=== PATIENT | female | born 1945 | race Caucasian/White ===

== ENCOUNTER 2016-10-08 22:27 | Emergency (ER) | payer MEDICARE, OTHER ==
[2016-10-08 22:37] VITALS: TEMP 97.8; O2SAT 99
[2016-10-08] MEDS ORDERED: Sodium Chloride 0.9% 500 ML IV ONE (23:21)
--- NOTE | 2016-10-08 23:36 | C.PDOC ---
History Of Present Illness 70 year old pt c/o right flank pain, increased urination, and dark, "foamy" urine for the last 3 weeks. Pt notes lower extremity swelling. Pt denies fever, chest pain, shortness of breath, abdominal pain, nausea, vomiting, dysuria, hematuria, or any other complaints. Time Seen by Provider: 10/08/16 22:40 Chief Complaint (Nursing): Female Genitourinary History Per: Patient History/Exam Limitations: no limitations Onset/Duration Of Symptoms: Days Current Symptoms Are (Timing): Still Present Severity: Mild Location Of Pain/Discomfort: Other (Right flank pain. Lower extremity edema) Associated Symptoms: denies: Fever, Nausea, Vomiting, Chest Pain, Urinary Symptoms Past Medical History Reviewed: Historical Data, Nursing Documentation, Vital Signs Vital Signs: Last Vital Signs Temp 97.8 F 10/08/16 22:33 Pulse 74 10/08/16 22:33 Resp 20 10/08/16 22:33 BP 147/85 10/08/16 22:33 Pulse Ox 99 10/08/16 23:45 - Medical History PMH: Anxiety, HTN, Hyperthyroidism, Hypothyroidism Surgical History: Appendectomy Family History: States: Unknown Family Hx - Social History Hx Tobacco Use: No Hx Alcohol Use: No Hx Substance Use: No - Immunization History Hx Tetanus Toxoid Vaccination: Yes Hx Influenza Vaccination: No Hx Pneumococcal Vaccination: Yes Review Of Systems Except As Marked, All Systems Reviewed And Found Negative. Constitutional: Negative for: Fever Cardiovascular: Positive for: Edema (Lower extremity edema). Negative for: Chest Pain Respiratory: Negative for: Shortness of Breath Gastrointestinal: Negative for: Nausea, Vomiting, Abdominal Pain Genitourinary: Positive for: Frequency (Polyuria), Other (Dark and foamy urine.) . Negative for: Dysuria, Hematuria Physical Exam - Physical Exam Appears: Well, Non-toxic, No Acute Distress Skin: Warm, Dry Head: Atraumatic, Normacephalic Chest: Symmetrical Cardiovascular: Rhythm Regular Respiratory: Normal Breath Sounds, No Rales, No Rhonchi, No Wheezing Gastrointestinal/Abdominal: Soft, No Tenderness, Other (No costovertebral angle tenderness) Extremity: Pedal Edema (+1 pedal edema of lower extremity) Neurological/Psych: Oriented x3, Normal Speech ED Course And Treatment - Laboratory Results Result Diagrams: 10/08/16 23:35 10/08/16 23:35 O2 Sat by Pulse Oximetry: 99 Progress Note: Pt was given blood works and other labs. Pt was given fluids. Disposition Counseled Patient/Family Regarding: Studies Performed, Diagnosis, Need For Followup - Disposition Referrals: Renard Chew MD [Staff Provider] - Zion Dawn Jr., MD [Staff Provider] - De Apodaca MD [Staff Provider] - Disposition: HOME/ ROUTINE Disposition Time: 00:50 Condition: STABLE Additional Instructions: SEGUIMIENTO CON CHASE MDICO EN 1-2 BOOKER DEVUELVA A LA GLENNY DE EMERGENCIA SI LOS SNTOMAS Instructions: Leg Edema (ED) Print Language: JAPANESE - POA Present On Arrival: None - Clinical Impression Clinical Impression: Leg edema, Frothy urine - Scribe Statement The provider has reviewed the documentation as recorded by the Scribe Alireza ayala All medical record entries made by the Scribe were at my direction and personally dictated by me. I have reviewed the chart and agree that the record accurately reflects my personal performance of the history, physical exam, medical decision making, and the department course for this patient. I have also personally directed, reviewed, and agree with the discharge instructions and disposition.
[2016-10-08 23:39] LABS: BASO % 0.4 % (0.0-2.0); EOS # 0.1 K/uL (0.0-0.7); EOS % 2.6 % (0.0-4.0); HEMATOCRIT 37.9 % (34.0-47.0); LYMPH # 2.2 K/uL (1.0-4.3); LYMPH % 40.7 % (20.0-40.0); MEAN CELL VOLUME 85.5 fL (81.0-99.0); MEAN CORPUSCULAR HGB CONC 32.8 g/dL (33.0-37.0); MEAN PLATELET VOLUME 9.5 fL (7.2-11.7); MONO # 0.5 K/uL (0.0-0.8); MONO % 10.1 % (0.0-10.0); RED CELL DISTRIBUTION WIDTH 13.8 % (11.5-14.5); WHITE BLOOD COUNT 5.3 K/uL (4.8-10.8)
[2016-10-08 23:40] LABS: URINE BILIRUBIN NEGATIVE (NEGATIVE); URINE COLOR Straw (YELLOW); URINE GLUCOSE (UA) NORMAL (Normal); URINE KETONE NEGATIVE (NEGATIVE); URINE LEUKOCYTE ESTERASE NEG Leu/uL (Negative); URINE PROTEIN NEGATIVE (NEGATIVE); URINE UROBILINOGEN NORMAL mg/dL (0.2-1.0); WBC URINE < 1 /hpf (0-5)
[2016-10-08 23:43] LABS: URINE BLOOD NEGATIVE (NEGATIVE)
[2016-10-08 23:47] LABS: CHLORIDE 100 mmol/L (98-107)
[2016-10-08 23:48] LABS: POTASSIUM 3.7 mmol/L (3.6-5.2); SODIUM 139 mmol/L (132-148)
[2016-10-08 23:50] LABS: ALB/GLOB RATIO 1.1 (1.0-2.1); ALKALINE PHOSPHATASE 88 U/L (38-126); AST/SGOT 25 U/L (14-36); BILIRUBIN,TOTAL 0.4 mg/dL (0.2-1.3); BLOOD UREA NITROGEN 19 mg/dL (7-17); CARBON DIOXIDE 28 mmol/L (22-30); GFR AFRICAN-AMERICAN > 60; GLUCOSE,RANDOM 111 mg/dL (65-105)
[2016-10-08 23:51] LABS: ALT/SGPT 33 U/L (9-52); CALCIUM 8.3 mg/dl (8.6-10.4)
[2016-10-09 00:58] VITALS: BP 119/77; PULSE 70; RESP 14
--- NOTE | 2016-10-09 11:06 | RAD ---
PROCEDURE: CHEST RADIOGRAPH, 1 VIEW HISTORY: [facility] COMPARISON: 07/27/2014 FINDINGS: LUNGS: Possible area of focal calcification in the right lower lobe again noted. Otherwise no airspace opacity seen. PLEURA: No pneumothorax or pleural fluid seen. CARDIOVASCULAR: Normal. OSSEOUS STRUCTURES: The osseous structures demonstrate degenerative changes. VISUALIZED UPPER ABDOMEN: Upper abdomen is suboptimally evaluated. OTHER FINDINGS: None. IMPRESSION: No focal airspace opacity. No significant interval change. If indicated, PA and lateral chest radiographs recommended.
== END 2016-10-09 00:58 | disposition home or self-care (01) ==
LOC: C.ER 22:27
DX: R60.0 Localized edema (principal); R39.198 Other difficulties with micturition
CPT/HCPCS: 71010; 80053; 81001; 83880; 84484; 85025; 87086; 99283; J7040

== ENCOUNTER 2016-11-12 01:02 | Emergency (ER) | payer MEDICARE, OTHER ==
[2016-11-12 01:20] VITALS: RESP 20; O2SAT 98
[2016-11-12 02:31] LABS: BASO % 0.8 % (0.0-2.0); EOS # 0.1 K/uL (0.0-0.7); EOS % 2.6 % (0.0-4.0); HEMATOCRIT 39.4 % (34.0-47.0); LYMPH # 1.7 K/uL (1.0-4.3); LYMPH % 33.5 % (20.0-40.0); MEAN CELL VOLUME 85.3 fL (81.0-99.0); MEAN CORPUSCULAR HEMOGLOBIN 27.9 pg (27.0-31.0); MEAN CORPUSCULAR HGB CONC 32.7 g/dL (33.0-37.0); MEAN PLATELET VOLUME 9.8 fL (7.2-11.7); MONO # 0.5 K/uL (0.0-0.8); MONO % 10.4 % (0.0-10.0); RED CELL DISTRIBUTION WIDTH 13.9 % (11.5-14.5)
[2016-11-12 02:36] LABS: RBC URINE 2 /hpf (0-3); URINE BILIRUBIN NEGATIVE (NEGATIVE); URINE BLOOD NEGATIVE (NEGATIVE); URINE COLOR Colorless (YELLOW); URINE GLUCOSE (UA) NORMAL (Normal); URINE KETONE NEGATIVE (NEGATIVE); URINE LEUKOCYTE ESTERASE 1+ Leu/uL (Negative); URINE PROTEIN NEGATIVE (NEGATIVE); URINE UROBILINOGEN NORMAL mg/dL (0.2-1.0); WBC URINE 4 /hpf (0-5)
--- NOTE | 2016-11-12 02:38 | C.PDOC ---
History Of Present Illness 70 y/o female with PMHx including HTN, as per daughter, c/o "feeling flushed" all over her body, prior to bed time last night. Daughter states patient had blood pressure reading of 200/110 at home. Denies chest pain, SOB, visual changes, dizziness, headache, palpitations, weakness, or numbness. Patient was seen by building equipment operator 10 days ago and had "diuretics" discontinued and Losartan dose doubled. Daughter states that her blood pressure has not been managed well with medication changes. Time Seen by Provider: 11/12/16 01:34 Chief Complaint (Nursing): High Blood Pressure History Per: Family (daughter) History/Exam Limitations: language barrier Onset/Duration Of Symptoms: Hrs Current Symptoms Are (Timing): Still Present Associated Symptoms: denies: Chest Pain, Dyspnea, Blurred Vision, Headache Past Medical History Reviewed: Historical Data, Nursing Documentation, Vital Signs Vital Signs: Last Vital Signs Temp 97.6 F 11/12/16 03:20 Pulse 64 11/12/16 03:20 Resp 20 11/12/16 03:20 BP 136/69 11/12/16 03:20 Pulse Ox 98 11/12/16 03:27 - Medical History PMH: Anxiety, HTN, Hyperthyroidism, Hypothyroidism Surgical History: Appendectomy Family History: States: Unknown Family Hx - Social History Hx Tobacco Use: No Hx Alcohol Use: No Hx Substance Use: No - Immunization History Hx Tetanus Toxoid Vaccination: No Hx Influenza Vaccination: No Hx Pneumococcal Vaccination: No Review Of Systems Except As Marked, All Systems Reviewed And Found Negative. Constitutional: Negative for: Fever, Chills Cardiovascular: Negative for: Chest Pain, Palpitations Respiratory: Negative for: Cough, Shortness of Breath, Wheezing Gastrointestinal: Negative for: Nausea, Vomiting Neurological: Negative for: Headache, Dizziness Physical Exam - Physical Exam Appears: Non-toxic, No Acute Distress, Other (anxious) Skin: Normal Color, Warm, Dry, No Rash Head: Atraumatic, Normacephalic Eye(s): bilateral: Normal Inspection, PERRL, EOMI Neck: Normal, Supple Chest: Symmetrical Cardiovascular: Rhythm Regular, No Murmur Respiratory: Normal Breath Sounds, No Rales, No Rhonchi, No Wheezing Gastrointestinal/Abdominal: Soft, No Tenderness Back: Normal Inspection Extremity: Normal ROM, Pedal Edema (+1, bilateral), Capillary Refill (< 2 sec.) Extremity: Bilateral: Atraumatic Pulses: Left Dorsalis Pedis: Normal, Right Dorsalis Pedis: Normal Neurological/Psych: Oriented x3, Normal Speech, Normal Cognition, Normal Motor, Normal Sensation Gait: Steady ED Course And Treatment - Laboratory Results Result Diagrams: 11/12/16 02:28 11/12/16 02:28 ECG: Interpreted By Me, Viewed By Me ECG Rhythm: Sinus Rhythm (normal at 69) O2 Sat by Pulse Oximetry: 98 (RA) Pulse Ox Interpretation: Normal Progress Note: EKG and bloodwork ordered and reviewed. Lab resultsa d/w pt and relatives at bedside. Pt appears well, reports feeling better- no longer " feeling flushed", no other c/o. Vss, repeat BP 136/69. Pt advised to follow up with PMD for reevaluation. Return precautions explained and understood by pt and family members Disposition Counseled Patient/Family Regarding: Diagnosis, Need For Followup - Disposition Referrals: Renard Chew MD [Staff Provider] - Disposition Time: 03:25 Condition: STABLE Additional Instructions: Continue current dose of BP meds as recommended by building equipment operator Increase fluids ( keep yourself hydrated) Follow up with PMD/ or cardio Return to ER if worse Instructions: Hypertension (ED) - Clinical Impression Clinical Impression: Anxiety, Hypertension - PA / SCARFING MACHINE OPERATOR / Resident Statement MD/DO has reviewed & agrees with the documentation as recorded. - Scribe Statement The provider has reviewed the documentation as recorded by the Oh Monroe Provider Scribe Attestation: All medical record entries made by the Oh were at my direction and personally dictated by me. I have reviewed the chart and agree that the record accurately reflects my personal performance of the history, physical exam, medical decision making, and the department course for this patient. I have also personally directed, reviewed, and agree with the discharge instructions and disposition.
[2016-11-12 02:43] LABS: CHLORIDE 104 mmol/L (98-107); POTASSIUM 3.8 mmol/L (3.6-5.2); SODIUM 141 mmol/L (132-148)
[2016-11-12 02:45] LABS: AST/SGOT 38 U/L (14-36); BILIRUBIN,TOTAL 0.5 mg/dL (0.2-1.3); CARBON DIOXIDE 27 mmol/L (22-30); GFR AFRICAN-AMERICAN > 60
[2016-11-12 02:46] LABS: ALB/GLOB RATIO 1.3 (1.0-2.1); ALKALINE PHOSPHATASE 99 U/L (38-126); ALT/SGPT 31 U/L (9-52); BLOOD UREA NITROGEN 16 mg/dL (7-17); CALCIUM 8.5 mg/dl (8.6-10.4); GLUCOSE,RANDOM 93 mg/dL (65-105); MAGNESIUM 2.3 mg/dL (1.6-2.3)
[2016-11-12 03:21] VITALS: BP 136/69; PULSE 64; TEMP 97.6
--- NOTE | 2016-11-13 11:58 | CARD ---
APPROVED REPORT EKG Measurement Heart [id number] <Conclusion> Normal sinus rhythm Minimal voltage criteria for LVH, may be normal variant Borderline ECG
== END 2016-11-12 03:50 | disposition home or self-care (01) ==
LOC: C.ER 01:02
DX: I10 Essential (primary) hypertension (principal); F41.9 Anxiety disorder, unspecified

== ENCOUNTER 2016-12-13 10:05 | Emergency (ER) | payer MEDICARE, OTHER ==
[2016-12-13 10:34] VITALS: O2SAT 98
--- NOTE | 2016-12-13 11:33 | C.PDOC ---
History Of Present Illness 70 year old patient, with a past medical history of hypertension, presents to the ED complaining of a headache since 9 AM in the morning. Patient states she woke up with a headache. She took her blood pressure which was 200/100 then took Losartan. Her headache has completely resolved now. Family is at bedside. Patient denies chest pain, dizziness, numbness, weakness, nausea or vomiting. Time Seen by Provider: 12/13/16 10:32 Chief Complaint (Nursing): Headache History Per: Patient, Family History/Exam Limitations: language barrier (translated by ED RN Loni) Onset/Duration Of Symptoms: Hrs (this morning) Current Symptoms Are (Timing): Gone Severity: None Pain Scale Rating Of: 0 Preceeding Symptoms: None Recent travel outside of the [place]: No Additional History Per: Family Past Medical History Reviewed: Historical Data, Nursing Documentation, Vital Signs Vital Signs: Last Vital Signs Temp 97.6 F 12/13/16 11:51 Pulse 57 L 12/13/16 11:51 Resp 16 12/13/16 11:51 BP 164/78 H 12/13/16 11:51 Pulse Ox 98 12/13/16 16:52 - Medical History PMH: Anxiety, HTN, Hyperthyroidism, Hypothyroidism Other PMH: bradycardia Surgical History: Appendectomy Family History: States: Unknown Family Hx - Social History Hx Tobacco Use: No Hx Alcohol Use: No Hx Substance Use: No - Immunization History Hx Tetanus Toxoid Vaccination: No Hx Influenza Vaccination: No Hx Pneumococcal Vaccination: No Review Of Systems Except As Marked, All Systems Reviewed And Found Negative. Cardiovascular: Negative for: Chest Pain Gastrointestinal: Negative for: Nausea, Vomiting Neurological: Positive for: Headache. Negative for: Weakness, Numbness, Dizziness Physical Exam - Physical Exam Appears: Non-toxic, No Acute Distress Skin: Warm, Dry Head: Atraumatic, Normacephalic Neck: Normal ROM, Supple Chest: Symmetrical Cardiovascular: Rhythm Regular Respiratory: Normal Breath Sounds, No Rales, No Rhonchi, No Wheezing Gastrointestinal/Abdominal: Soft, No Tenderness Back: Normal Inspection Extremity: Normal ROM Neurological/Psych: Oriented x3, Normal Motor, Normal Sensation Gait: Steady ED Course And Treatment O2 Sat by Pulse Oximetry: 98 (room air) Pulse Ox Interpretation: Normal Progress Note: Patient was offered to have blood work done. Family states she feels normal now, refuses the blood work, and wants to be discharged home. Reassessment Condition: Improved Disposition Counseled Patient/Family Regarding: Diagnosis, Need For Followup - Disposition Referrals: Renard Cool MD [Staff Provider] - Disposition: HOME/ ROUTINE Disposition Time: 11:30 Condition: STABLE Additional Instructions: FOLLOW UP WITH DR. COOL AND YOUR SENIOR UI WEB DEVELOPER IN 1 DAY FOR RE-EVALUATION. IF CHEST PAIN, HEADACHE, ANY CONCERNING SYMPTOMS DEVELOP RETURN TO ED. Instructions: Acute Headache (ED), Hypertension (ED) Forms: Gen Discharge Inst Gambian Print Language: TAJIK - Clinical Impression Clinical Impression: Headache, Hypertension - PA / CARDING UTILITY TENDER / Resident Statement MD/DO has reviewed & agrees with the documentation as recorded. - Scribe Statement The provider has reviewed the documentation as recorded by the Scribe Berta Hardin All medical record entries made by the Scribe were at my direction and personally dictated by me. I have reviewed the chart and agree that the record accurately reflects my personal performance of the history, physical exam, medical decision making, and the department course for this patient. I have also personally directed, reviewed, and agree with the discharge instructions and disposition.
[2016-12-13 11:52] VITALS: BP 164/78; PULSE 57; RESP 16; TEMP 97.6
== END 2016-12-13 12:06 | disposition home or self-care (01) ==
LOC: C.ER 10:05
DX: I10 Essential (primary) hypertension (principal); R51 Headache

== ENCOUNTER 2017-02-16 18:00 | Emergency (ER) | payer MEDICARE, OTHER, MEDICAID ==
[2017-02-16 19:12] LABS: BASO % 0.5 % (0.0-2.0); EOS # 0.1 K/uL (0.0-0.7); EOS % 1.9 % (0.0-4.0); HEMATOCRIT 39.6 % (34.0-47.0); LYMPH # 1.5 K/uL (1.0-4.3); LYMPH % 27.3 % (20.0-40.0); MEAN CELL VOLUME 85.6 fL (81.0-99.0); MEAN CORPUSCULAR HGB CONC 33.9 g/dL (33.0-37.0); MEAN PLATELET VOLUME 9.5 fL (7.2-11.7); MONO # 0.4 K/uL (0.0-0.8); MONO % 7.4 % (0.0-10.0); RED CELL DISTRIBUTION WIDTH 14.2 % (11.5-14.5); WHITE BLOOD COUNT 5.7 K/uL (4.8-10.8)
[2017-02-16 19:13] LABS: CHLORIDE 97 mmol/L (98-107); POTASSIUM 4.5 mmol/L (3.6-5.2); SODIUM 139 mmol/L (132-148)
[2017-02-16 19:15] LABS: BILIRUBIN,TOTAL 0.8 mg/dL (0.2-1.3); GFR AFRICAN-AMERICAN > 60
[2017-02-16 19:16] LABS: ALB/GLOB RATIO 1.3 (1.0-2.1); ALKALINE PHOSPHATASE 102 U/L (38-126); ALT/SGPT 33 U/L (9-52); AST/SGOT 28 U/L (14-36); BLOOD UREA NITROGEN 16 mg/dL (7-17); CALCIUM 8.9 mg/dl (8.6-10.4); CARBON DIOXIDE 30 mmol/L (22-30); GLUCOSE,RANDOM 96 mg/dL (65-105); TOTAL PROTEIN 7.2 g/dL (6.3-8.3)
--- NOTE | 2017-02-16 20:26 | C.PDOC ---
Time Seen by Provider: 02/16/17 18:35 Chief Complaint (Nursing): High Blood Pressure History Per: Patient, Family Onset/Duration Of Symptoms: Hrs (found at her PMD's office today) Current Symptoms Are (Timing): Still Present Associated Symptoms: Other (Anxiety) Quality Of Symptoms: Asymptomatic Severity: Moderate Exacerbating Factor(s): Pos: None Additional History Per: Prior Records Past Medical History Reviewed: Historical Data, Nursing Documentation, Vital Signs Vital Signs: Last Vital Signs Temp 98.4 F 02/16/17 18:01 Pulse 64 02/16/17 18:35 Resp 20 02/16/17 18:01 BP 150/72 02/16/17 18:35 Pulse Ox 96 02/16/17 18:01 - Medical History PMH: Anxiety, HTN, Hyperthyroidism, Hypothyroidism Surgical History: Appendectomy Family History: States: Unknown Family Hx - Social History Hx Tobacco Use: No Hx Alcohol Use: No Hx Substance Use: No - Immunization History Hx Tetanus Toxoid Vaccination: No Hx Influenza Vaccination: No Hx Pneumococcal Vaccination: No Review Of Systems Except As Marked, All Systems Reviewed And Found Negative. Constitutional: Negative for: Fever, Weakness Cardiovascular: Negative for: Chest Pain Respiratory: Negative for: Shortness of Breath Gastrointestinal: Negative for: Vomiting, Abdominal Pain Musculoskeletal: Negative for: Neck Pain, Back Pain Skin: Negative for: Rash Neurological: Negative for: Weakness, Seizures, Altered Mental Status, Headache Psych: Positive for: Anxiety Physical Exam - Physical Exam Appears: Non-toxic, No Acute Distress Skin: Normal Color, Warm, Dry, No Rash Head: Atraumatic, Normacephalic Eye(s): bilateral: Normal Inspection, PERRL, EOMI Neck: Normal ROM, Supple Cardiovascular: Rhythm Regular Respiratory: Normal Breath Sounds, No Accessory Muscle Use Gastrointestinal/Abdominal: Soft, No Tenderness Back: No CVA Tenderness Extremity: Normal ROM Pulses: Left Radial: Normal, Right Radial: Normal Neurological/Psych: Oriented x3, Normal Motor, Normal Sensation ED Course And Treatment - Laboratory Results Result Diagrams: 02/16/17 19:02 02/16/17 19:02 Lab Interpretation: No Acute Changes O2 Sat by Pulse Oximetry: 96 Pulse Ox Interpretation: Normal Progress Note: BP improved after small dose of Xanax. Reassessment Condition: Improved Medical Decision Making Medical Decision Making: Pt is on Losartan 50mg in the morning and 25mg at night. I will change this to 100mg once daily. Disposition Counseled Patient/Family Regarding: Studies Performed, Diagnosis, Need For Followup, Rx Given - Disposition Referrals: Renard Chew MD [Staff Provider] - Disposition: HOME/ ROUTINE Disposition Time: 20:26 Condition: IMPROVED Additional Instructions: Stop taking your Losartan twice a day and start taking the new Losartan once daily. Follow up with your doctor this week. Return to the ER if you develop worsening of symptoms or if you have any other concerns. Prescriptions: Losartan [Cozaar] 100 mg PO DAILY #30 tab Instructions: Chronic Hypertension (ED) Print Language: SERBIAN - Clinical Impression Clinical Impression: Anxiety, Hypertension
[2017-02-16 20:39] VITALS: BP 133/75; PULSE 61; RESP 18; TEMP 97.7; O2SAT 97
== END 2017-02-16 20:40 | disposition home or self-care (01) ==
LOC: C.ER 18:00
DX: F41.9 Anxiety disorder, unspecified (principal); I10 Essential (primary) hypertension

== ENCOUNTER 2017-02-28 01:17 | Emergency (ER) | payer MEDICARE, OTHER ==
[2017-02-28 01:36] VITALS: TEMP 97.9
[2017-02-28 02:09] LABS: SQUAMOUS EPITHIAL < 1 /hpf (0-5); URINE BACTERIA RARE (<OCC); URINE BILIRUBIN NEGATIVE (NEGATIVE); URINE BLOOD NEGATIVE (NEGATIVE); URINE CLARITY Clear (Clear); URINE COLOR Colorless (YELLOW); URINE GLUCOSE (UA) NORMAL (Normal); URINE LEUKOCYTE ESTERASE NEG Leu/uL (Negative); URINE NITRATE NEGATIVE (NEGATIVE); URINE PROTEIN NEGATIVE (NEGATIVE); URINE UROBILINOGEN NORMAL mg/dL (0.2-1.0)
[2017-02-28 02:14] LABS: BASO % 0.5 % (0.0-2.0); EOS # 0.1 K/uL (0.0-0.7); EOS % 2.8 % (0.0-4.0); HEMOGLOBIN 12.2 g/dL (11.0-16.0); LYMPH # 1.9 K/uL (1.0-4.3); MEAN CORPUSCULAR HEMOGLOBIN 29.2 pg (27.0-31.0); MEAN CORPUSCULAR HGB CONC 33.9 g/dL (33.0-37.0); MEAN PLATELET VOLUME 9.1 fL (7.2-11.7); MONO # 0.4 K/uL (0.0-0.8); MONO % 9.4 % (0.0-10.0); NEUT # 2.2 K/uL (1.8-7.0); NEUT % 47.3 % (50.0-75.0); NRBC % 0.1 % (0.0-2.0); RBC 4.18 Mil/uL (3.80-5.20); RED CELL DISTRIBUTION WIDTH 14.4 % (11.5-14.5); WHITE BLOOD COUNT 4.7 K/uL (4.8-10.8)
--- NOTE | 2017-02-28 02:21 | C.PDOC ---
History Of Present Illness 71 year old female was brought to the ED by EMS with complaints of a headache and high blood pressure while at home just prior to arrival. Patient states she is feeling better upon arrival and denies nausea, vomiting, or syncopal episode. Chief Complaint (Nursing): Headache History Per: Patient History/Exam Limitations: no limitations Onset/Duration Of Symptoms: Hrs Current Symptoms Are (Timing): Still Present Associated Symptoms: denies: Blurred Vision, Nausea, Vomiting Recent travel outside of the [place]: No Additional History Per: Prior Records Past Medical History Reviewed: Historical Data, Nursing Documentation, Vital Signs Vital Signs: Last Vital Signs Temp 97.9 F 02/28/17 01:32 Pulse 65 02/28/17 03:12 Resp 18 02/28/17 03:12 BP 130/79 02/28/17 03:12 Pulse Ox 98 02/28/17 03:12 - Medical History PMH: Anxiety, HTN, Hyperthyroidism, Hypothyroidism Surgical History: Appendectomy Family History: States: Unknown Family Hx - Social History Hx Tobacco Use: No Hx Alcohol Use: No Hx Substance Use: No - Immunization History Hx Tetanus Toxoid Vaccination: No Hx Influenza Vaccination: No Hx Pneumococcal Vaccination: No Review Of Systems Constitutional: Negative for: Fever, Chills Cardiovascular: Negative for: Chest Pain Respiratory: Negative for: Shortness of Breath Gastrointestinal: Negative for: Nausea, Vomiting Neurological: Positive for: Headache Physical Exam - Physical Exam Appears: Non-toxic, No Acute Distress, Other (Patient's blood pressure was 146/ 76 on exam) Skin: Warm, Dry Head: Atraumatic Eye(s): bilateral: Normal Inspection, PERRL, EOMI Oral Mucosa: Moist Neck: Supple Chest: Symmetrical, No Deformity Cardiovascular: Rhythm Regular Respiratory: Normal Breath Sounds, No Rhonchi, No Wheezing Neurological/Psych: Oriented x3, Normal Speech, Normal Cognition, Normal Cranial Nerves, Normal Motor, Normal Sensation ED Course And Treatment - Laboratory Results Result Diagrams: 02/28/17 02:03 02/28/17 02:03 O2 Sat by Pulse Oximetry: 96 (room air ) - CT Scan/US CT Head Without Intravenous Contrast Other Rad Studies (CT/US): Read By Radiologist, Radiology Report Reviewed CT/US Interpretation: FINDINGS: Brain: Prominence of the sulci and ventricular system consistent with atrophy. Hypodensity in the. white matter consistent with chronic small vessel disease. Bilateral basal ganglia calcifications. Tiny. calcification adjacent to anterior horn left lateral ventricle. No hemorrhage. Ventricles: No hydrocephalus. Bones/joints: Nasal bone deformity. No acute fracture. Soft tissues: Unremarkable. Sinuses: Unremarkable as visualized. No acute sinusitis. Mastoid air cells: Unremarkable as visualized. No mastoid effusion. IMPRESSION: 1. No acute intracranial abnormality. Disposition Counseled Patient/Family Regarding: Diagnosis - Disposition Referrals: [facility] [Outside] Disposition: HOME/ ROUTINE Disposition Time: 03:17 Condition: STABLE Instructions: Hypertension (ED) Forms: YinYangMap (Ukrainian) - POA Present On Arrival: None - Clinical Impression Clinical Impression: Hypertension - Scribe Statement The provider has reviewed the documentation as recorded by the Scribraj Morfin All medical record entries made by the Scribe were at my direction and personally dictated by me. I have reviewed the chart and agree that the record accurately reflects my personal performance of the history, physical exam, medical decision making, and the department course for this patient. I have also personally directed, reviewed, and agree with the discharge instructions and disposition.
[2017-02-28 02:31] LABS: ALBUMIN 3.5 g/dL (3.5-5.0)
[2017-02-28 02:34] LABS: ALB/GLOB RATIO 1.1 (1.0-2.1); AST/SGOT 31 U/L (14-36); BLOOD UREA NITROGEN 19 mg/dL (7-17); GFR AFRICAN-AMERICAN > 60; GFR NON-AFRICAN AMERICAN > 60
[2017-02-28 02:35] LABS: ALT/SGPT 27 U/L (9-52); CALCIUM 8.2 mg/dl (8.6-10.4)
--- NOTE | 2017-02-28 02:35 | CT ---
EXAM: CT Head Without Intravenous Contrast CLINICAL HISTORY: 71 years old, female; Pain; Headache; Tension TECHNIQUE: Axial computed tomography images of the head/brain without intravenous contrast. This CT exam was performed using one or more of the following dose reduction techniques: automated exposure control, adjustment of the mA and/or kV according to patient size, and/or use of iterative reconstruction technique. COMPARISON: No relevant prior studies available. FINDINGS: Brain: Prominence of the sulci and ventricular system consistent with atrophy. Hypodensity in the white matter consistent with chronic small vessel disease. Bilateral basal ganglia calcifications. Tiny calcification adjacent to anterior horn left lateral ventricle. No hemorrhage. Ventricles: No hydrocephalus. Bones/joints: Nasal bone deformity. No acute fracture. Soft tissues: Unremarkable. Sinuses: Unremarkable as visualized. No acute sinusitis. Mastoid air cells: Unremarkable as visualized. No mastoid effusion. IMPRESSION: 1. No acute intracranial abnormality. 2. Remainder of findings as above.
[2017-02-28 03:12] VITALS: BP 130/79; PULSE 65; RESP 18
[2017-02-28 03:18] VITALS: O2SAT 96
== END 2017-02-28 03:36 | disposition home or self-care (01) ==
LOC: C.ER 01:17
DX: I10 Essential (primary) hypertension (principal)

== ENCOUNTER 2017-10-17 17:09 | Emergency (ER) | payer MEDICARE, OTHER ==
--- NOTE | 2017-10-17 17:55 | C.PDOC ---
History Of Present Illness Patient is a 71 y/o female who presents to the ED with complaints of stiffness and aching in hands, goosebumps on arms, numbness on the top of the head, and blurry vision when reading for the last [address] Chew who prescribed outpatient workup and referred to an motor assembly supervisor and neurologist ; patient did not get labs done and did not follow up with eye appointment. She is scheduled for a neurology appointment on . Admits to taking aspirin to combat symptoms for the last two months, noting symptoms have been persistent. Admits to taking xanax for anxiety. No other physical complaints at this time. Time Seen by Provider: 10/17/17 17:45 Chief Complaint (Nursing): Weakness/Neurological Deficit History Per: Patient History/Exam Limitations: no limitations Onset/Duration Of Symptoms: Days (2 months ), Persistent Current Symptoms Are (Timing): Still Present Fall Associated With With Symptoms: No Past Medical History Reviewed: Historical Data, Nursing Documentation, Vital Signs Vital Signs: Last Vital Signs Temp 97.8 F 10/17/17 17:16 Pulse 78 10/17/17 17:16 Resp 16 10/17/17 17:16 BP 164/91 H 10/17/17 17:16 Pulse Ox 98 10/17/17 19:57 - Medical History PMH: Anxiety, HTN, Hyperthyroidism, Hypothyroidism Surgical History: Appendectomy Family History: States: Unknown Family Hx - Social History Hx Tobacco Use: No Hx Alcohol Use: No Hx Substance Use: No - Immunization History Hx Tetanus Toxoid Vaccination: No Hx Influenza Vaccination: No Hx Pneumococcal Vaccination: No Review Of Systems Eyes: Positive for: Vision Change (blurry vision when reading) Musculoskeletal: Positive for: Hand Pain (stiffness and numbness in bilateral hands) Neurological: Positive for: Numbness (to top of head) Physical Exam - Physical Exam Appears: Well, Non-toxic, No Acute Distress Skin: Normal Color, Warm, Dry Head: Atraumatic, Normacephalic Eye(s): bilateral: Normal Inspection, EOMI Oral Mucosa: Moist Cardiovascular: Rhythm Regular, No Murmur Respiratory: Normal Breath Sounds, No Rales, No Rhonchi, No Wheezing Gastrointestinal/Abdominal: Soft, No Tenderness ED Course And Treatment - Laboratory Results Result Diagrams: 10/17/17 18:07 10/17/17 18:07 Lab Interpretation: Normal Urine POC: Positive O2 Sat by Pulse Oximetry: 98 - CT Scan/US CT Head Other Rad Studies (CT/US): Read By Radiologist, Radiology Report Reviewed CT/US Interpretation: FINDINGS: Brain: Bilateral basal ganglia calcifications are again noted. There are chronic microvascular. ischemic changes. There is diffuse cerebral atrophy present, consistent with this patient's age. No. hemorrhage. Ventricles: Unremarkable. No ventriculomegaly. Bones/joints: Unremarkable. No acute fracture. Soft tissues: Unremarkable. Sinuses: Unremarkable as visualized. No acute sinusitis. Mastoid air cells: Unremarkable as visualized. No mastoid effusion. IMPRESSION: No acute findings. Thank you for allowing us to participate in the care of your patient. Dictated and Authenticated by: Rubia Wagner MD. 10/17/2017 7: 15 PM Eastern Time ([place] & [place]) Progress Note: Head CT and blood work ordered. Reevaluation Time: 20:07 Reassessment Condition: Improved Disposition Counseled Patient/Family Regarding: Studies Performed, Diagnosis, Need For Followup - Disposition Referrals: Renard Chew MD [Staff Provider] - Disposition: HOME/ ROUTINE Disposition Time: 20:08 Condition: STABLE Instructions: Paresthesias (DC) Forms: [employer] (Djiboutian) Print Language: SWEDISH - Clinical Impression Clinical Impression: Paresthesia - Scribe Statement The provider has reviewed the documentation as recorded by the Scribe Meg Husain All medical record entries made by the Scribe were at my direction and personally dictated by me. I have reviewed the chart and agree that the record accurately reflects my personal performance of the history, physical exam, medical decision making, and the department course for this patient. I have also personally directed, reviewed, and agree with the discharge instructions and disposition.
[2017-10-17 18:18] LABS: BASO % 0.4 % (0.0-2.0); EOS # 0.2 K/uL (0.0-0.7); EOS % 2.6 % (0.0-4.0); HEMOGLOBIN 13.3 g/dL (11.0-16.0); LYMPH % 32.4 % (20.0-40.0); MEAN CORPUSCULAR HEMOGLOBIN 29.2 pg (27.0-31.0); MEAN CORPUSCULAR HGB CONC 33.6 g/dL (33.0-37.0); MEAN PLATELET VOLUME 9.7 fL (7.2-11.7); MONO # 0.5 K/uL (0.0-0.8); MONO % 8.7 % (0.0-10.0); NEUT # 3.5 K/uL (1.8-7.0); NEUT % 55.9 % (50.0-75.0); RBC 4.54 Mil/uL (3.80-5.20); RED CELL DISTRIBUTION WIDTH 13.5 % (11.5-14.5); WHITE BLOOD COUNT 6.2 K/uL (4.8-10.8)
[2017-10-17 18:56] LABS: ALB/GLOB RATIO 1.2 (1.0-2.1); ALBUMIN 4.1 g/dL (3.5-5.0); ALT/SGPT 25 U/L (9-52); AST/SGOT 28 U/L (14-36); BLOOD UREA NITROGEN 17 mg/dL (7-17); CALCIUM 8.6 mg/dl (8.6-10.4); GFR AFRICAN-AMERICAN > 60; GFR NON-AFRICAN AMERICAN > 60
[2017-10-17 19:10] LABS: FREE T4 1.03 ng/dL (0.78-2.19)
[2017-10-17 20:27] VITALS: BP 130/74; PULSE 70; RESP 18; TEMP 97.6; O2SAT 96
--- NOTE | 2017-10-18 08:11 | CT ---
PROCEDURE: CT HEAD WITHOUT CONTRAST. HISTORY: Headache. COMPARISON: CT head dated 02/28/2017 TECHNIQUE: Axial computed tomography images were obtained through the head/brain without intravenous contrast. Radiation dose: Total exam DLP = 804 mGy-cm. This CT exam was performed using one or more of the following dose reduction techniques: Automated exposure control, adjustment of the mA and/or kV according to patient size, and/or use of iterative reconstruction technique. FINDINGS: HEMORRHAGE: No intracranial hemorrhage. BRAIN: No mass effect or edema. Scattered focal lucencies in the subcortical and periventricular white matter suggestive for chronic microvascular ischemic change. Bilateral basal ganglia calcifications. Diffuse cerebral atrophy. VENTRICLES: Unremarkable. No hydrocephalus. CALVARIUM: Unremarkable. PARANASAL SINUSES: Unremarkable as visualized. No significant inflammatory changes. MASTOID AIR CELLS: Unremarkable as visualized. No inflammatory changes. OTHER FINDINGS: None. IMPRESSION: Chronic microvascular ischemic changes. Diffuse cerebral atrophy. If symptoms persist, consider further evaluation with MRI. These findings were preliminarily reported at 7:15 p.m. on 10/17/[address] Maddie Wagner from [facility].
== END 2017-10-17 20:26 | disposition home or self-care (01) ==
LOC: C.ER 17:09
DX: R20.2 Paresthesia of skin (principal); I10 Essential (primary) hypertension

== ENCOUNTER 2017-11-05 12:12 | Emergency (ER) | payer MEDICARE, OTHER ==
[2017-11-05 12:44] VITALS: BMI 29.8
[2017-11-05 14:11] LABS: BASO % 0.7 % (0.0-2.0); EOS # 0.1 K/uL (0.0-0.7); EOS % 1.5 % (0.0-4.0); HEMOGLOBIN 13.1 g/dL (11.0-16.0); LYMPH # 1.5 K/uL (1.0-4.3); LYMPH % 27.1 % (20.0-40.0); MEAN CELL VOLUME 87.4 fL (81.0-99.0); MEAN CORPUSCULAR HEMOGLOBIN 29.6 pg (27.0-31.0); MEAN CORPUSCULAR HGB CONC 33.9 g/dL (33.0-37.0); MEAN PLATELET VOLUME 9.9 fL (7.2-11.7); MONO # 0.4 K/uL (0.0-0.8); MONO % 8.1 % (0.0-10.0); NEUT # 3.4 K/uL (1.8-7.0); NEUT % 62.6 % (50.0-75.0); RBC 4.44 Mil/uL (3.80-5.20); RED CELL DISTRIBUTION WIDTH 13.5 % (11.5-14.5); WHITE BLOOD COUNT 5.4 K/uL (4.8-10.8)
--- NOTE | 2017-11-05 14:46 | RAD ---
PROCEDURE: Radiographs of the Lumbar Spine. HISTORY: r/o compression fracture COMPARISON: No prior. FINDINGS: BONES: Normal alignment. No listhesis. Subtle depression of the L3 superior endplate. DISC SPACES: Unremarkable. OTHER FINDINGS: None. IMPRESSION: Subtle depression of the L3 superior endplate may represent age-indeterminate fracture. MRI of the lumbar spine can be obtained for further characterization of acuity as clinically warranted.
[2017-11-05 14:58] LABS: ALB/GLOB RATIO 1.1 (1.0-2.1); ALBUMIN 4.1 g/dL (3.5-5.0); ALT/SGPT 17 U/L (9-52); AST/SGOT 30 U/L (14-36); BLOOD UREA NITROGEN 15 mg/dL (7-17); CALCIUM 8.8 mg/dl (8.6-10.4); GFR AFRICAN-AMERICAN > 60; GFR NON-AFRICAN AMERICAN > 60
--- NOTE | 2017-11-05 15:12 | CT ---
PROCEDURE: CT HEAD WITHOUT CONTRAST. HISTORY: b/l arm numbness COMPARISON: 10/17/2017. TECHNIQUE: Axial computed tomography images were obtained through the head/brain without intravenous contrast. Radiation dose: Total exam DLP = 804.29 mGy-cm. This CT exam was performed using one or more of the following dose reduction techniques: Automated exposure control, adjustment of the mA and/or kV according to patient size, and/or use of iterative reconstruction technique. FINDINGS: HEMORRHAGE: No intracranial hemorrhage. BRAIN: There are mild chronic microangiopathic changes. There is no mass, mass effect or abnormal extra-axial fluid collection. There are coarse atherosclerotic calcifications in the cavernous carotid arteries. VENTRICLES: There is mild age-related global parenchymal volume loss and proportionate enlargement of the ventricles and cortical sulci. CALVARIUM: The skull base and calvarium are normal. PARANASAL SINUSES: Predominantly clear. MASTOID AIR CELLS: Predominantly clear. OTHER FINDINGS: None. IMPRESSION: No acute intracranial abnormality. If there is a persistent focal neurologic deficit and an ongoing clinical concern for acute infarction, an MRI of the brain without intravenous contrast would be a more sensitive modality for evaluation of hyperacute/acute ischemic infarction. Mild chronic microangiopathic changes and mild age-related global parenchymal volume loss.
--- NOTE | 2017-11-05 15:23 | CT ---
PROCEDURE: CT Cervical Spine without contrast HISTORY: Bilateral arm numbness COMPARISON: None available. TECHNIQUE: Axial computed tomography images were obtained of the cervical spine without the use of intravenous contrast. Coronal and sagittal reformatted images were created and reviewed. Radiation dose: Total exam DLP = 528.55 mGy-cm. This CT exam was performed using one or more of the following dose reduction techniques: Automated exposure control, adjustment of the mA and/or kV according to patient size, and/or use of iterative reconstruction technique. FINDINGS: VERTEBRAE: There is normal alignment of the cervical vertebral bodies. There is normal cervical lordosis. There is no acute fracture or traumatic anterior listhesis. There is diffuse bone demineralization. The craniocervical junction is normal. The atlantoaxial joint is normal. DISCS/SPINAL CANAL/NEURAL FORAMINA: There is multilevel degenerative disc disease due to combination of disc osteophyte complexes, uncovertebral joint hypertrophy and multilevel facet arthropathy without spinal canal stenosis. PARASPINAL SOFT TISSUES: Unremarkable. OTHER FINDINGS: There is an enlarged left thyroid lobe with retrosternal extension. IMPRESSION: 1. No acute fracture or traumatic anterior listhesis. 2. Mild multilevel degenerative disc disease without spinal canal stenosis. 3. Enlarged left thyroid lobe with retrosternal extension. A dedicated thyroid ultrasound on a nonemergent basis is recommended for further evaluation.
[2017-11-05 15:34] VITALS: BP 147/72; PULSE 63; RESP 16; TEMP 98.6; O2SAT 98
[2017-11-05 15:54] LABS: SQUAMOUS EPITHIAL 1 /hpf (0-5); URINE BILIRUBIN NEGATIVE (NEGATIVE); URINE BLOOD 1+ (NEGATIVE); URINE CLARITY Clear (Clear); URINE COLOR Straw (YELLOW); URINE GLUCOSE (UA) NORMAL (Normal); URINE LEUKOCYTE ESTERASE NEG Leu/uL (Negative); URINE PROTEIN NEGATIVE (NEGATIVE); URINE UROBILINOGEN NORMAL mg/dL (0.2-1.0)
--- NOTE | 2017-11-05 16:54 | C.PDOC ---
History Of Present Illness 71-year-old female, presents to the emergency department with complaints of headache and bilateral arm numbness x1.5 months. Patient denies trauma, shortness of breath, slurred speech, facial droop, cough or fever. Patient was seen in ED on 10/17 for same complaint. Chief Complaint (Nursing): Headache History Per: Patient History/Exam Limitations: no limitations Past Medical History Reviewed: Historical Data, Nursing Documentation, Vital Signs Vital Signs: Last Vital Signs Temp 98.6 F 11/05/17 15:28 Pulse 63 11/05/17 15:28 Resp 16 11/05/17 15:28 BP 147/72 11/05/17 15:28 Pulse Ox 98 11/05/17 16:55 - Medical History PMH: Anxiety, HTN, Hyperthyroidism, Hypothyroidism Surgical History: Appendectomy Family History: States: No Known Family Hx - Social History Hx Tobacco Use: No Hx Alcohol Use: No Hx Substance Use: No - Immunization History Hx Tetanus Toxoid Vaccination: No Hx Influenza Vaccination: No Hx Pneumococcal Vaccination: No Review Of Systems Except As Marked, All Systems Reviewed And Found Negative. Constitutional: Negative for: Fever, Chills Cardiovascular: Negative for: Chest Pain, Palpitations Respiratory: Negative for: Shortness of Breath Gastrointestinal: Negative for: Nausea, Vomiting Neurological: Positive for: Numbness (B/L arm), Headache. Negative for: Incoordination, Change in Speech, Confusion, Seizures, Altered Mental Status, Dizziness Physical Exam - Physical Exam Appears: Well, Non-toxic, No Acute Distress Skin: Normal Color, Warm, Dry, No Rash Head: Normacephalic Eye(s): bilateral: PERRL Nose: Normal Oral Mucosa: Moist Lips: Normal Appearing Neck: Normal ROM Cardiovascular: Rhythm Regular, No Murmur Respiratory: Normal Breath Sounds, No Accessory Muscle Use Extremity: Normal ROM, No Deformity, No Swelling Neurological/Psych: Oriented x3, Normal Speech, Normal Cognition, Normal Cranial Nerves, No Cerebellar Signs, Normal Motor, Normal Sensation, Normal Reflexes ED Course And Treatment - Laboratory Results Result Diagrams: 11/05/17 14:07 11/05/17 14:07 ECG: Interpreted By Me, Viewed By Me ECG Rhythm: Sinus Rhythm ECG Interpretation: No Acute Changes Rate From EC O2 Sat by Pulse Oximetry: 98 (RA) Pulse Ox Interpretation: Normal Disposition - Disposition Referrals: Renard Chew MD [Staff Provider] - Disposition: HOME/ ROUTINE Disposition Time: 15:25 Condition: GOOD Additional Instructions: Thank you for letting us take care of you today. The emergency medical care you received today was directed at your acute symptoms. If you were prescribed any medication, please fill it and take as directed. It may take several days for your symptoms to resolve. Return to the Emergency Department if your symptoms worsen, do not improve, or if you have any other problems. Please contact your doctor or call one of the physicians/clinics you have been referred to that are listed on the Patient Visit Information form that is included in your discharge packet. Bring any paperwork you were given at discharge with you along with any medications you are taking to your follow up visit. Our treatment cannot replace ongoing medical care by a primary care provider (PCP) outside of the emergency department. Thank you for allowing the [facility] team to be part of your care today. Follow up with your primary care doctor in 2-3 days for re-evaluation and further management. Nurys por dejarnos atenderlo hoy. La atencin mdica de emergencia que recibi hoy estaba dirigida a yadira sntomas agudos. Si le prescribieron algn medicamento, llnelo y tome segn las indicaciones. Yadira sntomas pueden tardar varios cat en resolverse. Regrese al Departamento de Emergencia si yadira s ntomas empeoran, no mejoran o si tiene algn otro problema. Comunquese con ochoa mdico o llame a mi de los mdicos / clnicas a los que weaver sido referido que figura en el formulario de Informacin de visita del paciente que se incluye en ochoa paquete de diogenes. Traiga todos los documentos que recibi al momento del diogenes junto con los medicamentos que est tomando en ochoa visita de seguimiento. Nuestro tratamiento no puede reemplazar la atencin mdica en curso por parte de un proveedor de atencin primaria (PCP) fuera del departamento de emergencias. Nurys por permitir que el equipo de [facility] sea parte de ochoa cuidado hoy. Rehana un seguimiento con ochoa mdico de atencin primaria en 2-3 cat para praveen nueva evaluacin y administracin adicional. Instructions: Headache, Adult (DC) Forms: Gen Discharge Inst Lao Print Language: VENEZUELAN - Clinical Impression Clinical Impression: Headache - Scribe Statement The provider has reviewed the documentation as recorded by the Scribe (Usman Andersen) All medical record entries made by the Scribe were at my direction and personally dictated by me. I have reviewed the chart and agree that the record accurately reflects my personal performance of the history, physical exam, medical decision making, and the department course for this patient. I have also personally directed, reviewed, and agree with the discharge instructions and disposition.
--- NOTE | 2017-11-08 20:42 | CARD ---
APPROVED REPORT EKG Measurement Heart [id number] <Conclusion> Normal sinus rhythm Moderate voltage criteria for LVH, may be normal variant Borderline ECG
== END 2017-11-05 16:25 | disposition home or self-care (01) ==
LOC: C.ER 12:12
DX: R51 Headache (principal)

== ENCOUNTER 2018-03-27 23:07 | Emergency (ER) | payer MEDICARE, OTHER ==
[2018-03-27 23:07] VITALS: BMI 29.8
[2018-03-27 23:26] VITALS: TEMP 98.2; O2SAT 100
[2018-03-28 00:48] LABS: BASO % 0.4 % (0.0-2.0); EOS # 0.1 K/uL (0.0-0.7); EOS % 1.6 % (0.0-4.0); HEMOGLOBIN 12.3 g/dL (11.0-16.0); LYMPH % 19.9 % (20.0-40.0); MEAN CELL VOLUME 86.1 fL (81.0-99.0); MEAN CORPUSCULAR HEMOGLOBIN 28.8 pg (27.0-31.0); MEAN CORPUSCULAR HGB CONC 33.5 g/dL (33.0-37.0); MONO # 0.4 K/uL (0.0-0.8); MONO % 8.8 % (0.0-10.0); NEUT # 3.4 K/uL (1.8-7.0); NEUT % 69.3 % (50.0-75.0); RBC 4.25 Mil/uL (3.80-5.20); WHITE BLOOD COUNT 4.9 K/uL (4.8-10.8)
--- NOTE | 2018-03-28 00:58 | C.PDOC ---
History Of Present Illness 72 year old female presents to the ER via EMS for evaluation of elevated blood pressure since approximately 2200. Patient states she suddenly felt hot and had a headache, she checked her blood pressure and saw it was 200/100. Patient currently takes valsartan 25mg tid, she has been on this dose for one week and was previously taking 100mg total daily. Denies any current complaints. Time Seen by Provider: 03/27/18 23:11 Chief Complaint (Nursing): High Blood Pressure History Per: Patient History/Exam Limitations: no limitations Onset/Duration Of Symptoms: Hrs Current Symptoms Are (Timing): Gone Associated Symptoms: Headache, Other ([place] hot). denies: Chest Pain, Dyspnea, Dizziness, Blurred Vision, Focal Weakness Quality Of Symptoms: Asymptomatic Exacerbating Factor(s): Pos: None Recent travel outside of the [place]: No Past Medical History Reviewed: Historical Data, Nursing Documentation, Vital Signs Vital Signs: Last Vital Signs Temp 98.2 F 03/27/18 23:21 Pulse 84 03/27/18 23:21 Resp 18 03/27/18 23:21 BP 162/87 H 03/27/18 23:21 Pulse Ox 100 03/28/18 01:07 - Medical History PMH: Anxiety, HTN, Hyperthyroidism, Hypothyroidism Surgical History: Appendectomy Family History: States: Unknown Family Hx - Social History Hx Tobacco Use: No Hx Alcohol Use: No Hx Substance Use: No - Immunization History Hx Tetanus Toxoid Vaccination: No Hx Influenza Vaccination: No Hx Pneumococcal Vaccination: No Review Of Systems Except As Marked, All Systems Reviewed And Found Negative. Constitutional: Positive for: Other ([place] hot) Neurological: Positive for: Headache Physical Exam - Physical Exam Appears: Non-toxic Skin: Normal Color, Warm, Dry Head: Atraumatic, Normacephalic Eye(s): bilateral: Normal Inspection, PERRL, EOMI Oral Mucosa: Moist Neck: Normal, Supple Chest: Symmetrical, No Tenderness Cardiovascular: Rhythm Regular Respiratory: Normal Breath Sounds, No Rales, No Rhonchi, No Wheezing Gastrointestinal/Abdominal: Soft, No Tenderness Back: No CVA Tenderness Neurological/Psych: Oriented x3, Normal Speech, Normal Cognition, Normal Motor, Normal Sensation Gait: Steady ED Course And Treatment - Laboratory Results Result Diagrams: 03/28/18 00:45 03/28/18 00:45 ECG: Interpreted By Me, Viewed By Me ECG Rhythm: Sinus Rhythm ECG Interpretation: Normal Interpretation Of ECG: Left axis deviations, no acute ST/T wave changes Rate From EC O2 Sat by Pulse Oximetry: 100 (Room air) Pulse Ox Interpretation: Normal Progress Note: Blood work and EKG ordered. Disposition - Disposition Referrals: Renard Chew MD [Primary Care Provider] - Disposition: HOME/ ROUTINE Disposition Time: 02:20 Condition: STABLE Additional Instructions: FOLLOW UP WITH YOUR DOCTOR IN 1-2 DAYS RETURN TO EMERGENCY ROOM IF YOU HAVE ANY CONCERNING SYMPTOMS SEGUIMIENTO CON CHASE MDICO EN 1-2 BOOKER REGRESE AL GLENNY DE EMERGENCIA SI TIENE ALGUNOS SNTOMAS RELACIONADOS Instructions: High Blood Pressure (DC) Forms: [employer] (Zimbabwean) Print Language: NEPALESE - Clinical Impression Clinical Impression: Hypertension - Scribe Statement The provider has reviewed the documentation as recorded by the Scribe Robe Lopez All medical record entries made by the Scribe were at my direction and personally dictated by me. I have reviewed the chart and agree that the record accurately reflects my personal performance of the history, physical exam, medical decision making, and the department course for this patient. I have also personally directed, reviewed, and agree with the discharge instructions and disposition.
[2018-03-28 01:00] LABS: ALB/GLOB RATIO 1.5 (1.0-2.1); ALBUMIN 3.9 g/dL (3.5-5.0); ALT/SGPT 26 U/L (9-52); AST/SGOT 22 U/L (14-36); BLOOD UREA NITROGEN 13 mg/dL (7-17); CALCIUM 8.7 mg/dl (8.6-10.4); GFR NON-AFRICAN AMERICAN > 60
[2018-03-28 01:32] LABS: CK-MB 1.57 ng/mL (0.0-3.38)
[2018-03-28 02:36] VITALS: BP 120/65; PULSE 78; RESP 16
--- NOTE | 2018-03-31 19:21 | CARD ---
APPROVED REPORT Date of service: 03/27/2018 EKG Measurement Heart [id number] 200P38 [id number] <Conclusion> Normal sinus rhythm Moderate voltage criteria for LVH, may be normal variant Borderline ECG
== END 2018-03-28 02:34 | disposition home or self-care (01) ==
LOC: C.ER 23:07 → SUPCPDRO 23:07 → C.ER 03-28 02:34
DX: I10 Essential (primary) hypertension (principal)

== ENCOUNTER 2018-04-15 22:25 | Emergency (ER) | payer MEDICARE, OTHER ==
[2018-04-15 22:25] VITALS: BMI 29.8
[2018-04-15 22:35] VITALS: TEMP 98.6; O2SAT 98
[2018-04-15 22:40] VITALS: PULSE 66
[2018-04-15 23:19] LABS: BASO % 0.8 % (0.0-2.0); EOS # 0.1 K/uL (0.0-0.7); EOS % 1.7 % (0.0-4.0); HEMOGLOBIN 13.3 g/dL (11.0-16.0); LYMPH # 0.8 K/uL (1.0-4.3); LYMPH % 20.3 % (20.0-40.0); MEAN CELL VOLUME 85.2 fL (81.0-99.0); MEAN PLATELET VOLUME 9.2 fL (7.2-11.7); MONO # 0.3 K/uL (0.0-0.8); MONO % 7.6 % (0.0-10.0); NEUT # 2.8 K/uL (1.8-7.0); NEUT % 69.6 % (50.0-75.0); NRBC % 0.1 % (0.0-2.0); RBC 4.58 Mil/uL (3.80-5.20); RED CELL DISTRIBUTION WIDTH 13.7 % (11.5-14.5); WHITE BLOOD COUNT 4.1 K/uL (4.8-10.8)
[2018-04-15 23:50] LABS: SQUAMOUS EPITHIAL < 1 /hpf (0-5); URINE BACTERIA RARE (<OCC); URINE BILIRUBIN NEGATIVE (NEGATIVE); URINE BLOOD NEGATIVE (NEGATIVE); URINE CLARITY Clear (Clear); URINE COLOR Colorless (YELLOW); URINE GLUCOSE (UA) NORMAL (Normal); URINE LEUKOCYTE ESTERASE NEG Leu/uL (Negative); URINE PROTEIN NEGATIVE (NEGATIVE); URINE UROBILINOGEN NORMAL mg/dL (0.2-1.0)
[2018-04-15 23:55] LABS: ALB/GLOB RATIO 1.4 (1.0-2.1); ALBUMIN 4.1 g/dL (3.5-5.0); ALT/SGPT 22 U/L (9-52); AST/SGOT 28 U/L (14-36); BLOOD UREA NITROGEN 13 mg/dL (7-17); GFR NON-AFRICAN AMERICAN > 60
[2018-04-16 00:08] VITALS: BP 119/75; RESP 62
--- NOTE | 2018-04-16 00:30 | C.PDOC ---
History Of Present Illness 72 year old female presents to the emergency department with complaints of high blood pressure. Patient states that her doctor recently decreased her BP meds. She denies chest pain, shortness of breath, visual changes, and neurological deficits. Time Seen by Provider: 04/16/18 00:29 Chief Complaint (Nursing): High Blood Pressure History Per: Patient History/Exam Limitations: no limitations Onset/Duration Of Symptoms: Hrs Current Symptoms Are (Timing): Still Present Associated Symptoms: denies: Chest Pain, Blurred Vision, Focal Weakness, Other ( shortness of breath) Exacerbating Factor(s): Pos: Recent Change In Medication Past Medical History Reviewed: Historical Data, Nursing Documentation, Vital Signs Vital Signs: Last Vital Signs Temp 98.6 F 04/15/18 22:36 Pulse 66 04/15/18 22:36 Resp 62 H 04/16/18 00:08 BP 119/75 04/16/18 00:08 Pulse Ox 98 04/16/18 00:37 - Medical History PMH: Anxiety, HTN, Hyperthyroidism, Hypothyroidism Surgical History: Appendectomy, Tonsillectomy Family History: States: No Known Family Hx - Social History Hx Tobacco Use: No Hx Alcohol Use: No Hx Substance Use: No - Immunization History Hx Tetanus Toxoid Vaccination: No Hx Influenza Vaccination: No Hx Pneumococcal Vaccination: No Review Of Systems Eyes: Negative for: Vision Change Cardiovascular: Negative for: Chest Pain Respiratory: Negative for: Shortness of Breath Neurological: Negative for: Weakness, Numbness Psych: Positive for: Anxiety Physical Exam - Physical Exam Appears: Non-toxic, No Acute Distress, Other (slightly anxious) Skin: Warm, Dry Head: Normacephalic Eye(s): bilateral: Normal Inspection, PERRL, EOMI Oral Mucosa: Moist Neck: Trachea Midline, Supple Chest: Symmetrical, No Tenderness Cardiovascular: Rhythm Regular, No Murmur Respiratory: No Rales, No Rhonchi, No Wheezing Gastrointestinal/Abdominal: Soft, No Tenderness, No Guarding, No Rebound Extremity: Normal ROM (all extremities) Neurological/Psych: Oriented x3, Normal Speech, Normal Cognition ED Course And Treatment - Laboratory Results Result Diagrams: 04/15/18 23:13 04/15/18 23:38 ECG: Interpreted By Me, Viewed By Me ECG Rhythm: Sinus Rhythm (61), Nonspecific Changes O2 Sat by Pulse Oximetry: 98 (RA) Pulse Ox Interpretation: Normal Progress Note: Plan: EKG. CMP. Troponin I. CBC. Urinalysis Disposition Counseled Patient/Family Regarding: Studies Performed, Diagnosis, Need For Followup - Disposition Referrals: Renard Chew MD [Staff Provider] - Disposition: HOME/ ROUTINE Disposition Time: 00:29 Condition: FAIR Additional Instructions: Please return if symptoms recur Instructions: High Blood Pressure in Adults Forms: [email or web address] (Turkish) - Clinical Impression Clinical Impression: Hypertension - Scribe Statement The provider has reviewed the documentation as recorded by the Scribe (Ghulam Meredith) Provider Attestation: All medical record entries made by the Scribe were at my direction and personally dictated by me. I have reviewed the chart and agree that the record accurately reflects my personal performance of the history, physical exam, medical decision making, and the department course for this patient. I have also personally directed, reviewed, and agree with the discharge instructions and disposition.
--- NOTE | 2018-04-18 18:44 | CARD ---
APPROVED REPORT Date of service: 04/15/2018 EKG Measurement Heart [id number] 170P18 [id number] <Conclusion> Normal sinus rhythm Minimal voltage criteria for LVH, may be normal variant Borderline ECG
== END 2018-04-16 00:50 | disposition home or self-care (01) ==
LOC: C.ER 22:25
DX: I10 Essential (primary) hypertension (principal)

== ENCOUNTER 2018-04-22 01:24 | Observation (INO) | payer MEDICARE, OTHER ==
[2018-04-22 01:24] VITALS: BMI 29.8
--- NOTE | 2018-04-22 01:44 | C.PDOC ---
History Of Present Illness 72 y/o female presents to the ED complaining of left lower qudrant pain for three days. She reports the pain worsens with movement. The patient also reports increased belching. She denies any urinary symptoms, nausea, vomiting, diarrhea, SOB fever or chest pain. The patient states her last BM was earlier today and she describes it as "hard" stool. Time Seen by Provider: 04/22/18 01:41 Chief Complaint (Nursing): Abdominal Pain History Per: Patient History/Exam Limitations: no limitations Onset/Duration Of Symptoms: Days Current Symptoms Are (Timing): Still Present Location Of Pain/Discomfort: LLQ Associated Symptoms: denies: Fever, Nausea, Vomiting, Diarrhea Last Bowel Movement: Today Recent travel outside of the [place]: No Past Medical History Reviewed: Historical Data, Nursing Documentation, Vital Signs Vital Signs: Last Vital Signs Temp 98.6 F 04/22/18 01:27 Pulse 73 04/22/18 01:27 Resp 22 04/22/18 01:27 BP 183/91 H 04/22/18 01:27 Pulse Ox 100 04/22/18 01:27 - Medical History PMH: Anxiety, HTN, Hyperthyroidism, Hypothyroidism Surgical History: Appendectomy, Tonsillectomy Other Surgeries: uterine surgery Family History: States: Unknown Family Hx - Social History Hx Tobacco Use: No Hx Alcohol Use: No Hx Substance Use: No - Immunization History Hx Tetanus Toxoid Vaccination: No Hx Influenza Vaccination: No Hx Pneumococcal Vaccination: No Review Of Systems Constitutional: Positive for: Other (increased belching). Negative for: Fever Cardiovascular: Negative for: Chest Pain Respiratory: Negative for: Cough, Shortness of Breath Gastrointestinal: Positive for: Abdominal Pain (LLQ pain). Negative for: Nausea, Vomiting, Diarrhea Genitourinary: Negative for: Dysuria, Hematuria Musculoskeletal: Negative for: Neck Pain, Back Pain Skin: Negative for: Rash Physical Exam - Physical Exam Appears: No Acute Distress, Other (Elderly) Skin: Warm, Dry Head: Atraumatic, Normacephalic Eye(s): bilateral: PERRL, EOMI Oral Mucosa: Dry Chest: Symmetrical, No Tenderness Cardiovascular: Rhythm Regular, No Murmur Respiratory: No Rales, No Rhonchi, No Wheezing, Other (CTA b/l) Gastrointestinal/Abdominal: Bowel Sounds (hyperactive ), Soft, Tenderness (to LLQ ), No Guarding, No Rebound, Other (Midline vertical scar from uterine fibroid surgery) Back: No CVA Tenderness Extremity: No Calf Tenderness, No Swelling Extremity: Bilateral: Normal Color And Temperature, Normal ROM Neurological/Psych: Oriented x3, Normal Speech, Normal Motor, Normal Sensation ED Course And Treatment - Laboratory Results Result Diagrams: 04/22/18 02:09 04/22/18 02:09 O2 Sat by Pulse Oximetry: 100 (RA) Pulse Ox Interpretation: Normal Medical Decision Making Medical Decision Making: Impression: 72 y/o female with LLQ pain (x3 days), pain worsening with movement and increased belching Plan: -CT abdomen and pelvis -CMP -Lipase -IV Fluids - Urine culture Disposition Discussed With Dr.: Sean Giang - Disposition Referrals: Renard Chew MD [Primary Care Provider] - Disposition: HOSPITALIZED Disposition Time: 04:57 Condition: STABLE Forms: [facility] (Belarusian) - Clinical Impression Clinical Impression: Ileitis, terminal, Hyponatremia - PA / BLADE ALIGNER / Resident Statement MD/DO has reviewed & agrees with the documentation as recorded. - Scribe Statement The provider has reviewed the documentation as recorded by the Scribe (Sharon Wilcox) All medical record entries made by the Scribe were at my direction and personally dictated by me. I have reviewed the chart and agree that the record accurately reflects my personal performance of the history, physical exam, m edical decision making, and the department course for this patient. I have also personally directed, reviewed, and agree with the discharge instructions and disposition.
[2018-04-22] MEDS ORDERED: Iohexol 240 (50 ml) PO STA (01:46)
[2018-04-22] MEDS ORDERED: Iohexol 240 (50 ml) ONE (02:14)
[2018-04-22 02:16] LABS: BASO % 0.5 % (0.0-2.0); EOS % 0.4 % (0.0-4.0); HEMOGLOBIN 13.1 g/dL (11.0-16.0); LYMPH # 2.6 K/uL (1.0-4.3); LYMPH % 27.3 % (20.0-40.0); MEAN CELL VOLUME 85.3 fL (81.0-99.0); MEAN CORPUSCULAR HEMOGLOBIN 28.9 pg (27.0-31.0); MEAN CORPUSCULAR HGB CONC 33.9 g/dL (33.0-37.0); MEAN PLATELET VOLUME 8.9 fL (7.2-11.7); MONO % 10.8 % (0.0-10.0); NEUT # 5.9 K/uL (1.8-7.0); RBC 4.53 Mil/uL (3.80-5.20); RED CELL DISTRIBUTION WIDTH 13.8 % (11.5-14.5); WHITE BLOOD COUNT 9.7 K/uL (4.8-10.8)
[2018-04-22 02:37] LABS: SQUAMOUS EPITHIAL 1 /hpf (0-5); URINE BILIRUBIN NEGATIVE (NEGATIVE); URINE CLARITY Clear (Clear); URINE COLOR Colorless (YELLOW); URINE GLUCOSE (UA) NORMAL (Normal); URINE LEUKOCYTE ESTERASE NEG Leu/uL (Negative); URINE PROTEIN NEGATIVE (NEGATIVE); URINE UROBILINOGEN NORMAL mg/dL (0.2-1.0)
[2018-04-22 02:46] LABS: URINE BLOOD TRACE (NEGATIVE)
[2018-04-22 02:47] LABS: ALB/GLOB RATIO 1.6 (1.0-2.1); ALBUMIN 4.3 g/dL (3.5-5.0); ALT/SGPT 28 U/L (9-52); AST/SGOT 22 U/L (14-36); BLOOD UREA NITROGEN 17 mg/dL (7-17); GFR NON-AFRICAN AMERICAN > 60; LIPASE 88 U/L (23-300)
[2018-04-22] MEDS ORDERED: Iodixanol 320 MG/ML 100 ML BOTTLE IV ONE (02:48)
[2018-04-22] MEDS ORDERED: metroNIDAZOLE IV 500 mg/100 ml 500 MG/100 ML BAG IVPB STA (04:50)
--- NOTE | 2018-04-22 04:50 | CP.PCM.HP ---
<Meryl Ibarra - Last Filed: 04/22/18 05:53> History of Present Illness - History of Present Illness History of Present Illness: History and Physical - Hospitalist Service CC: LLQ pain x 3 days HPI: Patient is a 72 year old female with past medical history of Hypertension, Hypothyroidism, Herniated Discs, Anxiety who presented to the emergency dept for worsening LLQ pain that started 3 days ago. Patient states that this has never happened to her before. Unable to describe the pain. Pain is worse with movement, coughing, passing flatus. Denies any relieving factors. When moving she rates the pain a 5/10 on pain scale. Admits to constipation. Last bowel movement was last night at 9pm. Stool was hard. She denies any fever/chills, headaches, dizziness, cp, palpitations, sob, dysuria, blood in stool, melena. ED course: Tylenol 650mg PO x 1, Cipro 400mg IVPB, Flagyl 500mg IVPB PMD: Dr Chew Allergies: Penicillin (foam at the mouth?) Medications: Losartan 75mg PO daily, Synthroid 25mcg PO daily, Xanax 0.25mg prn, ASA 81mg PO daily, Lyrica 75mg PO daily Medical History: Hypertension, Hypothyroidism, Anxiety, HNP, peripheral neuropathy Surgical History: Hysterectomy, Thyroid nodule removal - benign, Bilateral varicose vein surgery Social History: Denies alcohol, tobacco, drug use; last colonoscopy was September 2017 and was normal Family History: Mother - Hypertension, heart disease; Father- Varicose veins Present on Admission - Present on Admission Any Indicators Present on Admission: No Past Patient History - Infectious Disease Hx of Infectious Diseases: None - Past Social History Smoking Status: Never Smoked - CARDIAC Hx Hypertension: Yes - ENDOCRINE/METABOLIC Hx Hyperthyroidism: Yes Hx Hypothyroidism: Yes - PSYCHIATRIC Hx Anxiety: Yes Hx Substance Use: No - SURGICAL HISTORY Hx Appendectomy: Yes Hx Tonsillectomy: Yes - ANESTHESIA Hx Anesthesia: Yes Hx Anesthesia Reactions: No Meds Allergies/Adverse Reactions: Allergies Allergy/AdvReac Type Severity Reaction Status Date / Time Penicillins Allergy Severe RASH Verified 04/22/18 01:33 Physical Exam - Constitutional Appears: Non-toxic, No Acute Distress - Head Exam Head Exam: ATRAUMATIC, NORMAL INSPECTION, NORMOCEPHALIC - Eye Exam Eye Exam: EOMI, Normal appearance Pupil Exam: NORMAL ACCOMODATION - ENT Exam ENT Exam: Mucous Membranes Moist - Neck Exam Neck exam: Positive for: Full Rom - Respiratory Exam Respiratory Exam: Clear to Auscultation Bilateral, NORMAL BREATHING PATTERN. absent: Rales, Rhonchi, Wheezes - Cardiovascular Exam Cardiovascular Exam: REGULAR RHYTHM, +S1, +S2. absent: Systolic Murmur - GI/Abdominal Exam GI & Abdominal Exam: Normal Bowel Sounds, Soft. absent: Guarding, Hernia, Rebound, Rigid Additional comments: LUQ tenderness to palpation, mild tenderness in LLQ - Extremities Exam Extremities exam: Positive for: normal capillary refill, pedal pulses present. Negative for: calf tenderness Additional comments: +Varicose veins - Back Exam Back exam: NORMAL INSPECTION. absent: CVA tenderness (L), CVA tenderness (R), rash noted - Neurological Exam Neurological exam: Alert, CN II-XII Intact, Oriented x3 - Psychiatric Exam Psychiatric exam: Normal Affect, Normal Mood - Skin Skin Exam: Dry, Normal Color, Warm Results - Vital Signs Recent Vital Signs: Last Vital Signs Temp 98.6 F 04/22/18 01:27 Pulse 64 04/22/18 03:57 Resp 16 04/22/18 03:57 BP 163/89 H 04/22/18 03:57 Pulse Ox 100 04/22/18 03:57 - Labs Result Diagrams: 04/22/18 02:09 04/22/18 02:09 Labs: Laboratory Results - last 24 hr 04/22/18 04/22/18 04/22/18 01:47 02:09 02:09 WBC 9.7 D RBC 4.53 Hgb 13.1 Hct 38.6 MCV 85.3 MCH 28.9 MCHC 33.9 RDW 13.8 Plt Count 184 MPV 8.9 Neut % (Auto) 61.0 Lymph % (Auto) 27.3 [place] % (Auto) 10.8 H Eos % (Auto) 0.4 Baso % (Auto) 0.5 Neut # (Auto) 5.9 Lymph # (Auto) 2.6 [place] # (Auto) 1.0 H Eos # (Auto) 0.0 Baso # (Auto) 0.0 Sodium 130 L Potassium 4.5 Chloride 94 L Carbon Dioxide 24 Anion Gap 17 BUN 17 Creatinine 0.6 L Est GFR ( Amer) > 60 Est GFR (Non-Af Amer) > 60 Random Glucose 91 Calcium 9.0 Total Bilirubin 0.9 AST 22 ALT 28 Alkaline Phosphatase 77 Total Protein 7.0 Albumin 4.3 Globulin 2.8 Albumin/Globulin Ratio 1.6 Lipase 88 Urine Color Colorless Urine Clarity Clear Urine pH 6.0 Ur Specific [place] 1.002 L Urine Protein Negative Urine Glucose (UA) Normal Urine Ketones Trace Urine Blood Trace H Urine Nitrate Negative Urine Bilirubin Negative Urine Urobilinogen Normal Ur Leukocyte Esterase Neg Urine WBC (Auto) < 1 Ur Squamous Epith Cells 1 Assessment & Plan - Assessment and Plan (Free Text) Assessment: A/P: Patient is a 72 year old female with past medical history of Hypertension, Hypothyroidism, Anxiety, Herniated discs who presented to the emergency room for LLQ pain x 3 days. Abdominal Pain likely due to Ileitis -Stable, afebrile -Admit for observation -Will start on Ciprofloxacin and Flagyl -Continue NS at 100 cc/hr -Pain control as needed -Diet: CLD (advance as tolerated) -CT abd/pelvis showed mild diffuse thickening of terminal ileum. Underdistention vs mild Ileitis. Mild diffuse thickening of bladder. Underdistention vs mild cystitis (official report pending) -F/U urine cultures, blood cultures, procalcitonin Hyponatremia -Sodium 130 on admission -Serum osmolality, urine osmolality, urine sodium -Continue IV fluids Hypertension -Resume Losartan 75mg PO daily Hypothyroidism -Resume Synthroid 25mcg PO daily Anxiety -Xanax 0.25 PO daily prn GI/DVT ppx -Protonix 40mg IVP daily -SCDs Plan discussed with Dr Padmaja Ibarra DO PGY-2 <Sean Giang - Last Filed: 04/22/18 06:37> Results - Vital Signs Recent Vital Signs: Last Vital Signs Temp 98.5 F 04/22/18 06:05 Pulse 66 04/22/18 06:05 Resp 16 04/22/18 06:05 BP 161/81 H 04/22/18 06:05 Pulse Ox 100 04/22/18 06:05 - Labs Result Diagrams: 04/22/18 02:09 04/22/18 02:09 Labs: Laboratory Results - last 24 hr 04/22/18 04/22/18 04/22/18 01:47 02:09 02:09 WBC 9.7 D RBC 4.53 Hgb 13.1 Hct 38.6 MCV 85.3 MCH 28.9 MCHC 33.9 RDW 13.8 Plt Count 184 MPV 8.9 Neut % (Auto) 61.0 Lymph % (Auto) 27.3 [place] % (Auto) 10.8 H Eos % (Auto) 0.4 Baso % (Auto) 0.5 Neut # (Auto) 5.9 Lymph # (Auto) 2.6 [place] # (Auto) 1.0 H Eos # (Auto) 0.0 Baso # (Auto) 0.0 Sodium 130 L Potassium 4.5 Chloride 94 L Carbon Dioxide 24 Anion Gap 17 BUN 17 Creatinine 0.6 L Est GFR ( Amer) > 60 Est GFR (Non-Af Amer) > 60 Random Glucose 91 Calcium 9.0 Total Bilirubin 0.9 AST 22 ALT 28 Alkaline Phosphatase 77 Total Protein 7.0 Albumin 4.3 Globulin 2.8 Albumin/Globulin Ratio 1.6 Lipase 88 Urine Color Colorless Urine Clarity Clear Urine pH 6.0 Ur Specific [place] 1.002 L Urine Protein Negative Urine Glucose (UA) Normal Urine Ketones Trace Urine Blood Trace H Urine Nitrate Negative Urine Bilirubin Negative Urine Urobilinogen Normal Ur Leukocyte Esterase Neg Urine WBC (Auto) < 1 Ur Squamous Epith Cells 1 Assessment & Plan - Date & Time Date: 04/22/18 (I have seen and examined the patient. I agree with the findings and plan of care as documented by Dr. Ibarra. Patient with ileitis. Cipro and flagyl for now. Symptomatic treatment. Also with hyponatremia. NS IVF. Recheck and adjust as necessary. Monitor for acute changes.) Time: 06:35 Attending/Attestation - Attestation I have personally seen and examined this patient.: Yes I have fully participated in the care of the patient.: Yes I have reviewed all pertinent clinical information: Yes
[2018-04-22] MEDS ORDERED: metroNIDAZOLE IV 500 mg/100 ml 500 MG/100 ML BAG ONE (05:06)
[2018-04-22] MEDS ORDERED: Sodium Chloride 0.9% 1,000 ML ONE (05:06)
[2018-04-22] MEDS: Sodium Chloride 0.9% 1,000 ML IV SCH ×4 (05:12→21:45)
[2018-04-22] MEDS: Ciprofloxacin 400mg/200ml D5W 400 MG/200 ML BAG IVPB STA ×2 (06:30→06:55)
[2018-04-22] MEDS ORDERED: Ciprofloxacin 400mg/200ml D5W 400 MG/200 ML BAG IVPB ONE (06:33)
[2018-04-22 06:48] LABS: CREATININE, RANDOM URINE 13.5 mg/dL
[2018-04-22 06:57] VITALS: RESP 20
[2018-04-22] MEDS: Levothyroxine 25 MCG TAB PO SCH (06:57)
[2018-04-22 08:47] LABS: ALB/GLOB RATIO 1.4 (1.0-2.1); ALBUMIN 3.6 g/dL (3.5-5.0); ALT/SGPT 31 U/L (9-52); AST/SGOT 22 U/L (14-36); BLOOD UREA NITROGEN 13 mg/dL (7-17); CALCIUM 8.9 mg/dl (8.6-10.4); GFR NON-AFRICAN AMERICAN > 60
[2018-04-22] MEDS ORDERED: Enoxaparin 40 mg Syringe SC SCH (10:00)
[2018-04-22 11:15] LABS: BASO % 0.4 % (0.0-2.0); EOS # 0.1 K/uL (0.0-0.7); EOS % 1.1 % (0.0-4.0); LYMPH # 2.5 K/uL (1.0-4.3); LYMPH % 34.9 % (20.0-40.0); MEAN CELL VOLUME 85.7 fL (81.0-99.0); MEAN CORPUSCULAR HEMOGLOBIN 29.2 pg (27.0-31.0); MEAN PLATELET VOLUME 9.1 fL (7.2-11.7); MONO # 0.7 K/uL (0.0-0.8); MONO % 9.3 % (0.0-10.0); NEUT # 3.9 K/uL (1.8-7.0); NEUT % 54.3 % (50.0-75.0); RBC 4.46 Mil/uL (3.80-5.20); RED CELL DISTRIBUTION WIDTH 13.5 % (11.5-14.5); WHITE BLOOD COUNT 7.2 K/uL (4.8-10.8)
--- NOTE | 2018-04-22 11:31 | CT ---
Date of service: 04/22/2018 PROCEDURE: CT Abdomen and Pelvis with contrast HISTORY: Abdominal pain. COMPARISON: None. TECHNIQUE: Contrast dose: 100 cc Visipaque 320. Radiation dose: Total exam DLP = 449.33 mGy-cm. This CT exam was performed using one or more of the following dose reduction techniques: Automated exposure control, adjustment of the mA and/or kV according to patient size, and/or use of iterative reconstruction technique. FINDINGS: LOWER THORAX: Unremarkable. LIVER: Unremarkable. No gross lesion or ductal dilatation. GALLBLADDER AND BILE DUCTS: Unremarkable. PANCREAS: Unremarkable. No gross lesion or ductal dilatation. SPLEEN: Unremarkable. ADRENALS: Unremarkable. No mass. KIDNEYS AND URETERS: Unremarkable. No hydronephrosis. No solid mass. VASCULATURE: Unremarkable. No aortic aneurysm. BOWEL: Unremarkable. No obstruction. No gross mural thickening. APPENDIX: Normal appendix. PERITONEUM: Unremarkable. No free fluid. No free air. LYMPH NODES: Unremarkable. No enlarged lymph nodes. BLADDER: Unremarkable. REPRODUCTIVE: Prior hysterectomy. BONES: No acute fracture. OTHER FINDINGS: None. IMPRESSION: No acute findings related to/accounting for the clinical presentation. Additional benign and/or incidental findings described above. Concordant results (preliminary interpretation) provided by [employer]. Procedure Completed: 03:39 Preliminary Report: Dictated and Authenticated: 04:16 Final Interpretation: 11:29. April 22, 2018.
[2018-04-22] MEDS ORDERED: metroNIDAZOLE IV 500 mg/100 ml 500 MG/100 ML BAG IVPB SCH (13:00)
--- NOTE | 2018-04-22 14:12 | CP.PCM.CON ---
History of Present Illness - History of Present Illness History of Present Illness: GI service Consult cc: abdominal pain HPI: 72 year old woman admitted with 3 day history of LLQ pain, exacerbated by movements in body position. Pt has been constipated. Had colonoscopy "a few months ago" by Dr Murillo and only noted hemorrhoids were found. Patient denies fevers, chills, weight loss, nausea, vomiting, blood in stool, dyspnea, chest pain. CT scan and labwork reviewed and are unremarkable. Ileitis is not reported on official reading of CT. Review of Systems - Constitutional Constitutional: As Per HPI - EENT Eyes: absent: Change in Vision - Cardiovascular Cardiovascular: As Per HPI - Respiratory Respiratory: As Per HPI - Gastrointestinal Gastrointestinal: As Per HPI - Genitourinary Genitourinary: absent: Difficulty Urinating - Musculoskeletal Musculoskeletal: absent: Back Pain - Integumentary Integumentary: absent: Rash Past Patient History - Infectious Disease Hx of Infectious Diseases: None - Past Medical History & Family History Past Medical History?: No - Past Social History Smoking Status: Never Smoked Alcohol: None - CARDIAC Hx Hypertension: Yes - ENDOCRINE/METABOLIC Hx Hypothyroidism: Yes - MUSCULOSKELETAL/RHEUMATOLOGICAL Hx Falls: No - GASTROINTESTINAL Hx Hemorrhoids: Yes - PSYCHIATRIC Hx Anxiety: Yes Hx Substance Use: No - SURGICAL HISTORY Hx Appendectomy: Yes Hx Hysterectomy: Yes Hx Tonsillectomy: Yes - ANESTHESIA Hx Anesthesia: Yes Hx Anesthesia Reactions: No Meds Allergies/Adverse Reactions: Allergies Allergy/AdvReac Type Severity Reaction Status Date / Time Penicillins Allergy Severe RASH Verified 04/22/18 01:33 - Medications Medications: Current Medications Alprazolam (Xanax) 0.25 mg PO PRN PRN PRN Reason: Anxiety Stop: 04/29/18 04:52 Aspirin (Ecotrin) 81 mg PO DAILY [facility] Last Admin: 04/22/18 10:25 Dose: 81 mg Enoxaparin Sodium (Lovenox) 40 mg SC DAILY [facility] Last Admin: 04/22/18 10:26 Dose: 40 mg Sodium Chloride (Sodium Chloride 0.9%) 1,000 mls @ 100 mls/hr IV .Q10H [facility] Last Admin: 04/22/18 13:29 Dose: Not Given Levothyroxine Sodium (Synthroid) 25 mcg PO DAILY@0630 [facility] Last Admin: 04/22/18 06:57 Dose: 25 mcg Losartan Potassium (Cozaar) 50 mg PO DAILY [facility] Last Admin: 04/22/18 10:25 Dose: 50 mg Losartan Potassium (Cozaar) 25 mg PO DIN [facility] Physical Exam - Constitutional Appears: Well, No Acute Distress - Head Exam Head Exam: ATRAUMATIC, NORMOCEPHALIC - Eye Exam Eye Exam: Normal appearance. absent: Scleral icterus - ENT Exam ENT Exam: Normal Exam - Neck Exam Neck exam: Positive for: Normal Inspection - Respiratory Exam Respiratory Exam: Clear to Auscultation Bilateral - Cardiovascular Exam Cardiovascular Exam: REGULAR RHYTHM - GI/Abdominal Exam GI & Abdominal Exam: Soft. absent: Distended, Mass, Tenderness - Rectal Exam Rectal Exam: Deferred - Extremities Exam Extremities exam: Positive for: normal inspection - Back Exam Back exam: NORMAL INSPECTION - Neurological Exam Neurological exam: Alert, Oriented x3 - Psychiatric Exam Psychiatric exam: Normal Affect, Normal Mood - Skin Skin Exam: Normal Color Results - Vital Signs Recent Vital Signs: Last Vital Signs Temp 98.8 F 04/22/18 08:11 Pulse 64 04/22/18 08:11 Resp 20 04/22/18 08:11 BP 132/65 04/22/18 08:11 Pulse Ox 96 04/22/18 14:05 - Labs Result Diagrams: 04/22/18 10:56 04/22/18 08:29 Labs: Laboratory Results - last 24 hr 04/22/18 04/22/18 04/22/18 01:47 02:09 02:09 WBC 9.7 D RBC 4.53 Hgb 13.1 Hct 38.6 MCV 85.3 MCH 28.9 MCHC 33.9 RDW 13.8 Plt Count 184 MPV 8.9 Neut % (Auto) 61.0 Lymph % (Auto) 27.3 [place] % (Auto) 10.8 H Eos % (Auto) 0.4 Baso % (Auto) 0.5 Neut # (Auto) 5.9 Lymph # (Auto) 2.6 [place] # (Auto) 1.0 H Eos # (Auto) 0.0 Baso # (Auto) 0.0 Sodium 130 L Potassium 4.5 Chloride 94 L Carbon Dioxide 24 Anion Gap 17 BUN 17 Creatinine 0.6 L Est GFR ( Amer) > 60 Est GFR (Non-Af Amer) > 60 Random Glucose 91 Serum Osmolality Calcium 9.0 Total Bilirubin 0.9 AST 22 ALT 28 Alkaline Phosphatase 77 Total Protein 7.0 Albumin 4.3 Globulin 2.8 Albumin/Globulin Ratio 1.6 Lipase 88 Procalcitonin Urine Color Colorless Urine Clarity Clear Urine pH 6.0 Ur Specific [place] 1.002 L Urine Protein Negative Urine Glucose (UA) Normal Urine Ketones Trace Urine Blood Trace H Urine Nitrate Negative Urine Bilirubin Negative Urine Urobilinogen Normal Ur Leukocyte Esterase Neg Urine WBC (Auto) < 1 Ur Squamous Epith Cells 1 Urine Osmolality Ur Random Creatinine Ur Random Sodium 04/22/18 04/22/18 04/22/18 06:20 07:21 07:21 WBC RBC Hgb Hct MCV MCH MCHC RDW Plt Count MPV Neut % (Auto) Lymph % (Auto) [place] % (Auto) Eos % (Auto) Baso % (Auto) Neut # (Auto) Lymph # (Auto) [place] # (Auto) Eos # (Auto) Baso # (Auto) Sodium Potassium Chloride Carbon Dioxide Anion Gap BUN Creatinine Est GFR ( Amer) Est GFR (Non-Af Amer) Random Glucose Serum Osmolality 281 Calcium Total Bilirubin AST ALT Alkaline Phosphatase Total Protein Albumin Globulin Albumin/Globulin Ratio Lipase Procalcitonin < 0.05 L Urine Color Urine Clarity Urine pH Ur Specific [place] Urine Protein Urine Glucose (UA) Urine Ketones Urine Blood Urine Nitrate Urine Bilirubin Urine Urobilinogen Ur Leukocyte Esterase Urine WBC (Auto) Ur Squamous Epith Cells Urine Osmolality 139 L Ur Random Creatinine 13.5 Ur Random Sodium 21 04/22/18 04/22/18 08:29 10:56 WBC 7.2 RBC 4.46 Hgb 13.0 Hct 38.2 MCV 85.7 MCH 29.2 MCHC 34.0 RDW 13.5 Plt Count 195 MPV 9.1 Neut % (Auto) 54.3 Lymph % (Auto) 34.9 [place] % (Auto) 9.3 Eos % (Auto) 1.1 Baso % (Auto) 0.4 Neut # (Auto) 3.9 Lymph # (Auto) 2.5 [place] # (Auto) 0.7 Eos # (Auto) 0.1 Baso # (Auto) 0.0 Sodium 133 Potassium 4.7 Chloride 95 L Carbon Dioxide 29 Anion Gap 14 BUN 13 Creatinine 0.6 L Est GFR ( Amer) > 60 Est GFR (Non-Af Amer) > 60 Random Glucose 95 Serum Osmolality Calcium 8.9 Total Bilirubin 1.1 AST 22 ALT 31 Alkaline Phosphatase 71 Total Protein 6.1 L Albumin 3.6 Globulin 2.5 Albumin/Globulin Ratio 1.4 Lipase Procalcitonin Urine Color Urine Clarity Urine pH Ur Specific [place] Urine Protein Urine Glucose (UA) Urine Ketones Urine Blood Urine Nitrate Urine Bilirubin Urine Urobilinogen Ur Leukocyte Esterase Urine WBC (Auto) Ur Squamous Epith Cells Urine Osmolality Ur Random Creatinine Ur Random Sodium Assessment & Plan (1) Constipation Assessment and Plan: Colonoscopy done this year, no need to repeat at present Try Miralax Status: Acute (2) Abdominal pain, left lower quadrant Assessment and Plan: Normal objective findings. Likely due to fecal stasis. Will discontinue antibiotics- unlikely to have infectious source. Will also discontinue PPI Status: Acute - Date & Time Date: 04/22/18 Time: 14:18
[2018-04-22] MEDS ORDERED: Ciprofloxacin 400mg/200ml D5W 400 MG/200 ML BAG IVPB SCH (16:49)
[2018-04-22] MEDS ORDERED: POLYETHYLENE GLYCOL 3350 17 GM/Dose PACKET PO SCH (18:00)
--- NOTE | 2018-04-22 21:49 | CP.PCM.PN ---
Subjective - Date & Time of Evaluation Date of Evaluation: 04/22/18 Time of Evaluation: 11:00 - Subjective Subjective: Medical Attending Note: Patient seen at bedside with daughter. Patient denies headache, denies chest pain, reports constipation, reports mild lower quadrant pain, denies nausea, denies vomitting. Patient reports constipation is normal for her, reports very hard. She reports she had colonoscopy early this year, denies acute findings per discussion with daughter. Objective - Vital Signs/Intake and Output Vital Signs (last 24 hours): Temp Pulse Resp BP Pulse Ox 97.7 F 56 L 20 102/62 97 04/22/18 15:30 04/22/18 15:30 04/22/18 15:30 04/22/18 15:30 04/22/18 15:30 Intake and Output: 04/22/18 04/23/18 18:59 06:59 Intake Total 1100 Balance 1100 - Medications Medications: Current Medications Alprazolam (Xanax) 0.25 mg PO DAILY PRN PRN Reason: Anxiety Stop: 04/29/18 04:52 Aspirin (Ecotrin) 81 mg PO DAILY [facility]S [facility] Last Admin: 04/22/18 10:25 Dose: 81 mg Docusate Sodium (Colace) 100 mg PO BID [facility]CLUDE 234 BEDS AT [facility] Last Admin: 04/22/18 17:41 Dose: 100 mg Enoxaparin Sodium (Lovenox) 40 mg SC DAILY [facility] 234 BEDS AT [facility] Last Admin: 04/22/18 10:26 Dose: 40 mg Sodium Chloride (Sodium Chloride 0.9%) 1,000 mls @ 100 mls/hr IV .Q10H [facility] 234 BEDS AT [facility] Last Admin: 04/22/18 21:45 Dose: Not Given Levothyroxine Sodium (Synthroid) 25 mcg PO DAILY@0630 [facility] 234 B[facility]S AT [facility] Last Admin: 04/22/18 06:57 Dose: 25 mcg Losartan Potassium (Cozaar) 50 mg PO DAILY [facility] 234 BEDS AT [facility] Last Admin: 04/22/18 10:25 Dose: 50 mg Losartan Potassium (Cozaar) 25 mg PO DIN [facility] 234 BEDS AT [facility] Polyethylene Glycol (Miralax) 17 gm PO QPM [facility]S [facility]CLUDE 234 BEDS AT [facility] Last Admin: 04/22/18 17:42 Dose: 17 gm - Labs Labs: 04/22/18 10:56 04/22/18 08:29 - Constitutional Appears: Non-toxic, No Acute Distress - Head Exam Head Exam: NORMAL INSPECTION - Eye Exam Eye Exam: EOMI - ENT Exam ENT Exam: Mucous Membranes Moist - Respiratory Exam Respiratory Exam: Clear to Ausculation Bilateral, NORMAL BREATHING PATTERN - Cardiovascular Exam Cardiovascular Exam: REGULAR RHYTHM, +S1, +S2 - GI/Abdominal Exam GI & Abdominal Exam: Soft Additional comments: soft nondistended, no guarding, no peritoneal signs, mild tender over LLQ, no rebound, no suprapubic tenderness, +BS X4 quadrants - Extremities Exam Additional comments: no edema, no cyanosis, no clubbing - Neurological Exam Neurological Exam: Alert, Awake, Oriented x3 - Psychiatric Exam Psychiatric exam: Normal Affect, Normal Mood - Skin Skin Exam: Dry, Intact, Normal Color, Warm Assessment and Plan (1) Constipation Assessment & Plan: miralax colace 100mg PO BID Status: Acute (2) Abdominal pain, left lower quadrant Assessment & Plan: secondary to fecal stasis relieve constipation CT scan: no acute findings related to/accounting for the clinical presentation Status: Acute (3) Hypothyroidism Assessment & Plan: Synthroid 25mcg PO qAM Status: Chronic (4) Anxiety Assessment & Plan: Xanax 0.25mg PO PRN daily Status: Chronic (5) Peripheral neuropathy Status: Chronic (6) Hypertension Assessment & Plan: Cozaar 75mg PO daily (50mg PO qam; 25mg PO pm) Status: Chronic (7) Prophylactic measure Assessment & Plan: Lovenox 40mg subq daily NS 100cc/hr Status: Acute
--- NOTE | 2018-04-22 21:54 | CP.PCM.PN ---
<Valdemar Ma - Last Filed: 04/22/18 21:50> Subjective - Date & Time of Evaluation Date of Evaluation: 04/22/18 Time of Evaluation: 09:15 - Subjective Subjective: Medicine Progress Note for Hospitalist Service Pt seen and examined at bedside this am. Denies any acute complaints, reports only abdominal pain in LLQ worsened with palpation. Reports episode of hard stool last evening. Admits to burning with urination this am, but unable to remember when she started feeling this symptom. Denies fever, chills, headache, syncope/dizziness, chest pain, shortness of breath, n/v/d, or other symptoms. Objective - Vital Signs/Intake and Output Vital Signs (last 24 hours): Temp Pulse Resp BP Pulse Ox 97.7 F 56 L 20 102/62 97 04/22/18 15:30 04/22/18 15:30 04/22/18 15:30 04/22/18 15:30 04/22/18 15:30 Intake and Output: 04/22/18 04/23/18 18:59 06:59 Intake Total 1100 Balance 1100 - Medications Medications: Current Medications Alprazolam (Xanax) 0.25 mg PO DAILY PRN PRN Reason: Anxiety Stop: 04/29/18 04:52 Aspirin (Ecotrin) 81 mg PO DAILY [facility] Last Admin: 04/22/18 10:25 Dose: 81 mg Docusate Sodium (Colace) 100 mg PO BID [facility] Last Admin: 04/22/18 17:41 Dose: 100 mg Enoxaparin Sodium (Lovenox) 40 mg SC DAILY [facility] Last Admin: 04/22/18 10:26 Dose: 40 mg Sodium Chloride (Sodium Chloride 0.9%) 1,000 mls @ 100 mls/hr IV .Q10H [facility] Last Admin: 04/22/18 21:45 Dose: Not Given Levothyroxine Sodium (Synthroid) 25 mcg PO DAILY@0630 [facility] Last Admin: 04/22/18 06:57 Dose: 25 mcg Losartan Potassium (Cozaar) 50 mg PO DAILY [facility] Last Admin: 04/22/18 10:25 Dose: 50 mg Losartan Potassium (Cozaar) 25 mg PO DIN [facility] Polyethylene Glycol (Miralax) 17 gm PO QPM [facility] Last Admin: 04/22/18 17:42 Dose: 17 gm - Labs Labs: 04/22/18 10:56 04/22/18 08:29 - Constitutional Appears: Non-toxic, No Acute Distress - Head Exam Head Exam: ATRAUMATIC, NORMOCEPHALIC - Eye Exam Eye Exam: EOMI, Normal appearance, PERRL - ENT Exam ENT Exam: Mucous Membranes Moist - Neck Exam Neck Exam: Full ROM, Normal Inspection. absent: Lymphadenopathy - Respiratory Exam Respiratory Exam: Clear to Ausculation Bilateral, NORMAL BREATHING PATTERN. absent: Rales, Rhonchi, Wheezes, Respiratory Distress - Cardiovascular Exam Cardiovascular Exam: REGULAR RHYTHM, +S1, +S2. absent: Gallop, Rubs, Murmur - GI/Abdominal Exam GI & Abdominal Exam: Soft, Normal Bowel Sounds. absent: Distended, Firm, Guarding, Rigid, Organomegaly Additional comments: Tenderness to palpation in LLQ - Extremities Exam Extremities Exam: Full ROM, Normal Capillary Refill, Normal Inspection. absent: Calf Tenderness, Joint Swelling, Pedal Edema - Neurological Exam Neurological Exam: Alert, Awake, CN II-XII Intact, Oriented x3 - Psychiatric Exam Psychiatric exam: Normal Affect, Normal Mood - Skin Skin Exam: Dry, Intact, Normal Color, Warm Assessment and Plan - Assessment and Plan (Free Text) Assessment: 72 year old female with past medical history of Hypertension, Hypothyroidism, Anxiety, Herniated discs who presented to the emergency room for LLQ pain x 3 days, likely 2/2 ileitis/constipation. Plan: Abdominal Pain 2/2 Ileitis/Constipation -Stable, afebrile, symptoms improving -C/w Ciprofloxacin and Flagyl -Continue NS at 100 cc/hr -Pain control as needed -Diet: liquid, advance as tolerated -CT abd/pelvis showed no acute findings -U/a demonstrated trace blood -F/U urine cultures, blood cultures; procalcitonin wnl -GI consulted (Dr. Auguste), recs appreciated, likely 2/2 constipation -Colace 100 mg bid Hyponatremia -Sodium 130 on admission, repeat 133 today, continue to trend with labs -Urine osmolality 139, urine Cr 13.5, urine sodium 21 -C/w IVF Hypertension -Losartan 50mg PO in am, 25 mg PO in pm -BPs stable Hypothyroidism -Synthroid 25mcg PO daily Hx Anxiety -Xanax 0.25 PO daily prn GI/DVT ppx -Protonix 40mg IVP daily -SCDs Dispo: D/c planning to home pending improvement in clinic status Pt seen, examined with, and plan discussed with Dr. Medrano, attending. Valdemar Ma DO PGY-1, [employer] Pager #[phone] <MitchellCathryn V - Last Filed: 04/22/18 23:20> Objective - Vital Signs/Intake and Output Vital Signs (last 24 hours): Temp Pulse Resp BP Pulse Ox 97.7 F 56 L 20 102/62 97 04/22/18 15:30 04/22/18 15:30 04/22/18 15:30 04/22/18 15:30 04/22/18 15:30 Intake and Output: 04/22/18 04/23/18 18:59 06:59 Intake Total 1100 200 Balance 1100 200 - Medications Medications: Current Medications Alprazolam (Xanax) 0.25 mg PO DAILY PRN PRN Reason: Anxiety Stop: 04/29/18 04:52 Last Admin: 04/22/18 22:25 Dose: 0.25 mg Aspirin (Ecotrin) 81 mg PO DAILY [facility] Last Admin: 04/22/18 10:25 Dose: 81 mg Docusate Sodium (Colace) 100 mg PO BID [facility] Last Admin: 04/22/18 17:41 Dose: 100 mg Enoxaparin Sodium (Lovenox) 40 mg SC DAILY [facility] Last Admin: 04/22/18 10:26 Dose: 40 mg Sodium Chloride (Sodium Chloride 0.9%) 1,000 mls @ 100 mls/hr IV .Q10H [facility] Last Admin: 04/22/18 21:45 Dose: Not Given Levothyroxine Sodium (Synthroid) 25 mcg PO DAILY@0630 [facility] Last Admin: 04/22/18 06:57 Dose: 25 mcg Losartan Potassium (Cozaar) 50 mg PO DAILY [facility] Last Admin: 04/22/18 10:25 Dose: 50 mg Losartan Potassium (Cozaar) 25 mg PO DIN [facility] Polyethylene Glycol (Miralax) 17 gm PO QPM [facility] Last Admin: 04/22/18 17:42 Dose: 17 gm - Labs Labs: 04/22/18 10:56 04/22/18 08:29 Assessment and Plan (1) Constipation Status: Acute (2) Abdominal pain, left lower quadrant Status: Acute (3) Hypothyroidism Status: Chronic (4) Anxiety Status: Chronic (5) Peripheral neuropathy Status: Chronic (6) Hypertension Status: Chronic (7) Prophylactic measure Status: Acute Attending/Attestation - Attestation I have personally seen and examined this patient.: Yes I have fully participated in the care of the patient.: Yes I have reviewed all pertinent clinical information, including history, physical exam and plan: Yes Notes (Text): Patient seen, examined, and case discussed with medical support assistant. Please refer to my progress note of the day same date.
[2018-04-23] MEDS: Levothyroxine 25 MCG TAB PO SCH (05:55)
[2018-04-23] MEDS: Sodium Chloride 0.9% 1,000 ML IV SCH ×2 (06:00→09:13)
[2018-04-23 07:11] LABS: EOS # 0.1 K/uL (0.0-0.7); EOS % 3.6 % (0.0-4.0); HEMOGLOBIN 12.4 g/dL (11.0-16.0); LYMPH # 1.5 K/uL (1.0-4.3); LYMPH % 41.5 % (20.0-40.0); MEAN CELL VOLUME 84.9 fL (81.0-99.0); MEAN CORPUSCULAR HEMOGLOBIN 29.5 pg (27.0-31.0); MEAN CORPUSCULAR HGB CONC 34.8 g/dL (33.0-37.0); MEAN PLATELET VOLUME 9.1 fL (7.2-11.7); MONO # 0.5 K/uL (0.0-0.8); MONO % 12.4 % (0.0-10.0); NEUT # 1.5 K/uL (1.8-7.0); NEUT % 41.5 % (50.0-75.0); NRBC % 0.1 % (0.0-2.0); RBC 4.2 Mil/uL (3.80-5.20); RED CELL DISTRIBUTION WIDTH 13.6 % (11.5-14.5); WHITE BLOOD COUNT 3.7 K/uL (4.8-10.8)
[2018-04-23 07:27] LABS: ALB/GLOB RATIO 1.2 (1.0-2.1); ALBUMIN 3.3 g/dL (3.5-5.0); ALT/SGPT 29 U/L (9-52); AST/SGOT 21 U/L (14-36); BLOOD UREA NITROGEN 5 mg/dL (7-17); CALCIUM 8.5 mg/dl (8.6-10.4); GFR NON-AFRICAN AMERICAN > 60
[2018-04-23 08:02] VITALS: PULSE 52; TEMP 98.5; O2SAT 99
--- NOTE | 2018-04-23 09:24 | CP.PCM.PN ---
Subjective - Date & Time of Evaluation Date of Evaluation: 04/23/18 Time of Evaluation: 09:05 - Subjective Subjective: Medical Attending Note: patient seen and examined this morning. Patient had a bowel movement over night. Discussed with RN at bedside, patient has swelling over the right upper extremity suspected secondary to infiltrated line. We have d/c line and started warm compresses. patient is pending for venous and arterial duplex for upper extremity this morning. Patient has palpable radial pulses, swelling over the right upper extremities. Objective - Vital Signs/Intake and Output Vital Signs (last 24 hours): Temp Pulse Resp BP Pulse Ox 98.5 F 52 L 20 133/73 99 04/23/18 08:01 04/23/18 08:01 04/23/18 08:01 04/23/18 08:01 04/23/18 08:01 Intake and Output: 04/23/18 04/23/18 06:59 18:59 Intake Total 200 Balance 200 - Medications Medications: Current Medications Alprazolam (Xanax) 0.25 mg PO DAILY PRN PRN Reason: Anxiety Stop: 04/29/18 04:52 Last Admin: 04/22/18 22:25 Dose: 0.25 mg Aspirin (Ecotrin) 81 mg PO DAILY [facility] Last Admin: 04/22/18 10:25 Dose: 81 mg Docusate Sodium (Colace) 100 mg PO BID [facility] Last Admin: 04/22/18 17:41 Dose: 100 mg Enoxaparin Sodium (Lovenox) 40 mg SC DAILY [facility] Last Admin: 04/22/18 10:26 Dose: 40 mg Furosemide (Lasix) 40 mg PO STAT STA Stop: 04/23/18 09:21 Levothyroxine Sodium (Synthroid) 25 mcg PO DAILY@0630 [facility] Last Admin: 04/23/18 05:55 Dose: 25 mcg Losartan Potassium (Cozaar) 50 mg PO DAILY [facility] Last Admin: 04/22/18 10:25 Dose: 50 mg Losartan Potassium (Cozaar) 25 mg PO DIN [facility] Polyethylene Glycol (Miralax) 17 gm PO QPM [facility] Last Admin: 04/22/18 17:42 Dose: 17 gm Prednisone (Prednisone Tab) 10 mg PO ONCE ONE Stop: 04/23/18 09:21 - Labs Labs: 04/23/18 06:57 04/23/18 06:57 - Constitutional Appears: Non-toxic, No Acute Distress - Head Exam Head Exam: NORMAL INSPECTION - Eye Exam Eye Exam: EOMI - ENT Exam ENT Exam: Mucous Membranes Moist - Respiratory Exam Respiratory Exam: Clear to Ausculation Bilateral, NORMAL BREATHING PATTERN. absent: Rales, Rhonchi, Wheezes - Cardiovascular Exam Cardiovascular Exam: REGULAR RHYTHM, +S1, +S2 - GI/Abdominal Exam GI & Abdominal Exam: Soft, Normal Bowel Sounds. absent: Distended, Firm, Guarding, Rigid, Tenderness, Rebound - Extremities Exam Extremities Exam: absent: Pedal Edema, Tenderness - Neurological Exam Neurological Exam: Alert, Awake, Oriented x3 - Skin Skin Exam: Dry, Normal Color, Warm Additional comments: right upper extremity: swelling; nonpitting (prior area of peripheral line) Radial pulse intact Assessment and Plan (1) Constipation Status: Acute (2) Abdominal pain, left lower quadrant Status: Acute (3) Hypothyroidism Status: Chronic (4) Anxiety Status: Chronic (5) Peripheral neuropathy Status: Chronic (6) Hypertension Status: Chronic (7) IV infiltration Status: Acute (8) Prophylactic measure Status: Acute Attending/Attestation - Attestation I have personally seen and examined this patient.: Yes I have fully participated in the care of the patient.: Yes I have reviewed all pertinent clinical information, including history, physical exam and plan: Yes Notes (Text): Assessment and Plan (1) Constipation Assessment & Plan: patient had bowel movement overnight. Patient reporting minimal pain on exam miralax daily colace 100mg PO BID Status: Acute (2) Abdominal pain, left lower quadrant Assessment & Plan: secondary to fecal stasis had bowel movement overnight CT scan: no acute findings related to/accounting for the clinical presentation Status: Acute (3) Hypothyroidism Assessment & Plan: Synthroid 25mcg PO qAM Status: Chronic (4) Anxiety Assessment & Plan: Xanax 0.25mg PO PRN daily Status: Chronic (5) Peripheral neuropathy Status: Chronic (6) Hypertension Assessment & Plan: Cozaar 75mg PO daily (50mg PO qam; 25mg PO pm) Status: Chronic (7) IV line infiltration Assessment & Plan: held aspirin/lovenox this morning patient has radial pulses; edematous over the right upper extremity Patient is ordered for venous and arterial duplex to rule out other pathology Patient started on warm compresses and given dose of lasix and prednisone to relieve swelling (7) Prophylactic measure Assessment & Plan: held Lovenox 40mg subq daily d/c IV fluids patient is tolerating liquid diet Status: Acute
[2018-04-23 10:00] VITALS: BP 133/77
--- NOTE | 2018-04-23 13:07 | CP.PCM.PN ---
Subjective - Date & Time of Evaluation Date of Evaluation: 04/23/18 Time of Evaluation: 13:05 - Subjective Subjective: Patient continues to complain of abdominal pain, now LUQ, and swelling of the right forearm. She denies having nausea, vomiting, diarrhea. Objective - Vital Signs/Intake and Output Vital Signs (last 24 hours): Temp Pulse Resp BP Pulse Ox 98.5 F 52 L 20 133/77 99 04/23/18 08:01 04/23/18 08:01 04/23/18 08:01 04/23/18 09:53 04/23/18 08:01 Intake and Output: 04/23/18 04/23/18 06:59 18:59 Intake Total 200 Balance 200 - Medications Medications: Current Medications Alprazolam (Xanax) 0.25 mg PO DAILY PRN PRN Reason: Anxiety Stop: 04/29/18 04:52 Last Admin: 04/22/18 22:25 Dose: 0.25 mg Aspirin (Ecotrin) 81 mg PO DAILY [facility] Last Admin: 04/22/18 10:25 Dose: 81 mg Docusate Sodium (Colace) 100 mg PO BID [facility] Last Admin: 04/23/18 09:52 Dose: 100 mg Enoxaparin Sodium (Lovenox) 40 mg SC DAILY [facility] [place] Last Admin: 04/22/18 10:26 Dose: 40 mg Influenza Virus Vaccine (Fluzone Quad [id number]) 60 mcg IM .ONCE ONE Stop: 04/24/18 10:01 Levothyroxine Sodium (Synthroid) 25 mcg PO DAILY@0630 [facility] Last Admin: 04/23/18 05:55 Dose: 25 mcg Losartan Potassium (Cozaar) 50 mg PO DAILY [facility] [place] Last Admin: 04/23/18 11:31 Dose: 50 mg Losartan Potassium (Cozaar) 25 mg PO DIN [facility] Pneumococcal Polyvalent Vaccine (Pneumovax 23 Vaccine) 0.5 ml IM .ONCE ONE Stop: 04/25/18 10:01 Polyethylene Glycol (Miralax) 17 gm PO QPM [facility] [place] Last Admin: 04/22/18 17:42 Dose: 17 gm - Labs Labs: 04/23/18 06:57 04/23/18 06:57 - Constitutional Appears: No Acute Distress - Head Exam Head Exam: ATRAUMATIC, NORMOCEPHALIC - Eye Exam Eye Exam: EOMI, PERRL - Neck Exam Neck Exam: absent: Lymphadenopathy, Thyromegaly - Respiratory Exam Respiratory Exam: NORMAL BREATHING PATTERN. absent: Rales, Rhonchi, Wheezes - Cardiovascular Exam Cardiovascular Exam: REGULAR RHYTHM, +S1, +S2. absent: Gallop, Rubs, Murmur - GI/Abdominal Exam GI & Abdominal Exam: Soft, Tenderness, Normal Bowel Sounds. absent: Mass, Organomegaly Additional comments: Mild tenderness to palpation in LUQ under ribs - Rectal Exam Rectal Exam: Deferred - Extremities Exam Extremities Exam: absent: Pedal Edema Assessment and Plan (1) Left upper quadrant pain Assessment & Plan: Pain has shifted to the LUQ. Blood tests are essentially within normal limits. Consider repeat CT scan if pain persists. Status: Acute
--- NOTE | 2018-04-23 21:59 | CP.PCM.DIS ---
Addendum entered and electronically signed by Valdemar Ma DO 04/24/18 19:06: Discharge summary was sent by active fax to PMD Dr. Chew. Original Note: <Valdemar Ma - Last Filed: 04/23/18 21:51> Provider - Provider Date of Admission: 04/22/18 04:51 Attending physician: Sean Giang MD Primary care physician: Renard Chew MD Consults: GI - Dr. Auguste Time Spent in preparation of Discharge (in minutes): 45 Diagnosis - Discharge Diagnosis (1) Abdominal pain, left lower quadrant Status: Acute (2) Constipation Status: Acute (3) Ileitis, terminal Status: Acute Hospital Course - Lab Results Lab Results: Micro Results 04/22/18 04:05 Urine Urine Culture - Final No Growth (<1,000 CFU/ML) 04/22/18 06:20 Blood Blood Culture - Preliminary NO GROWTH AFTER 24 HOURS 04/22/18 06:20 Blood Blood Culture - Preliminary NO GROWTH AFTER 24 HOURS Most Recent Lab Values WBC 3.7 K/uL (4.8-10.8) L 04/23/18 06:57 RBC 4.20 Mil/uL (3.80-5.20) 04/23/18 06:57 Hgb 12.4 g/dL (11.0-16.0) 04/23/18 06:57 Hct 35.6 % (34.0-47.0) 04/23/18 06:57 MCV 84.9 fL (81.0-99.0) 04/23/18 06:57 MCH 29.5 pg (27.0-31.0) 04/23/18 06:57 MCHC 34.8 g/dL (33.0-37.0) 04/23/18 06:57 RDW 13.6 % (11.5-14.5) 04/23/18 06:57 Plt Count 195 K/uL (130-400) 04/23/18 06:57 MPV 9.1 fL (7.2-11.7) 04/23/18 06:57 Neut % (Auto) 41.5 % (50.0-75.0) L 04/23/18 06:57 Lymph % (Auto) 41.5 % (20.0-40.0) H 04/23/18 06:57 [place] % (Auto) 12.4 % (0.0-10.0) H 04/23/18 06:57 Eos % (Auto) 3.6 % (0.0-4.0) 04/23/18 06:57 Baso % (Auto) 1.0 % (0.0-2.0) 04/23/18 06:57 Neut # (Auto) 1.5 K/uL (1.8-7.0) L 04/23/18 06:57 Lymph # (Auto) 1.5 K/uL (1.0-4.3) 04/23/18 06:57 [place] # (Auto) 0.5 K/uL (0.0-0.8) 04/23/18 06:57 Eos # (Auto) 0.1 K/uL (0.0-0.7) 04/23/18 06:57 Baso # (Auto) 0.0 K/uL (0.0-0.2) 04/23/18 06:57 Sodium 136 mmol/L (132-148) 04/23/18 06:57 Potassium 3.7 mmol/L (3.6-5.2) 04/23/18 06:57 Chloride 102 mmol/L (98-107) 04/23/18 06:57 Carbon Dioxide 27 mmol/L (22-30) 04/23/18 06:57 Anion Gap 10 (10-20) 04/23/18 06:57 BUN 5 mg/dL (7-17) L 04/23/18 06:57 Creatinine 0.6 mg/dL (0.7-1.2) L 04/23/18 06:57 Est GFR ( Amer) > 60 04/23/18 06:57 Est GFR (Non-Af Amer) > 60 04/23/18 06:57 Random Glucose 91 mg/dL (65-105) 04/23/18 06:57 Serum Osmolality 281 mosm/kg (272-300) 04/22/18 07:21 Calcium 8.5 mg/dl (8.6-10.4) L 04/23/18 06:57 Phosphorus 3.1 mg/dL (2.5-4.5) 04/23/18 06:57 Magnesium 2.0 mg/dL (1.6-2.3) 04/23/18 06:57 Total Bilirubin 0.5 mg/dL (0.2-1.3) 04/23/18 06:57 AST 21 U/L (14-36) 04/23/18 06:57 ALT 29 U/L (9-52) 04/23/18 06:57 Alkaline Phosphatase 64 U/L (38-126) 04/23/18 06:57 Total Protein 6.0 g/dL (6.3-8.3) L 04/23/18 06:57 Albumin 3.3 g/dL (3.5-5.0) L 04/23/18 06:57 Globulin 2.7 gm/dL (2.2-3.9) 04/23/18 06:57 Albumin/Globulin Ratio 1.2 (1.0-2.1) 04/23/18 06:57 Lipase 88 U/L (23-300) 04/22/18 02:09 Procalcitonin < 0.05 NG/ML (0.19-0.49) L 04/22/18 07:21 Urine Color Colorless (YELLOW) 04/22/18 01:47 Urine Clarity Clear (Clear) 04/22/18 01:47 Urine pH 6.0 (5.0-8.0) 04/22/18 01:47 Ur Specific [place] 1.002 (1.003-1.030) L 04/22/18 01:47 Urine Protein Negative mg/dL (NEGATIVE) 04/22/18 01:47 Urine Glucose (UA) Normal mg/dL (Normal) 04/22/18 01:47 Urine Ketones Trace mg/dL (NEGATIVE) 04/22/18 01:47 Urine Blood Trace (NEGATIVE) H 04/22/18 01:47 Urine Nitrate Negative (NEGATIVE) 04/22/18 01:47 Urine Bilirubin Negative (NEGATIVE) 04/22/18 01:47 Urine Urobilinogen Normal mg/dL (0.2-1.0) 04/22/18 01:47 Ur Leukocyte Esterase Neg Maureen/uL (Negative) 04/22/18 01:47 Urine WBC (Auto) < 1 /hpf (0-5) 04/22/18 01:47 Ur Squamous Epith Cells 1 /hpf (0-5) 04/22/18 01:47 Urine Osmolality 139 mosm/kg (300-1000) L 04/22/18 06:20 Ur Random Creatinine 13.5 mg/dL 04/22/18 06:20 Ur Random Sodium 21 mmol/L 04/22/18 06:20 - Hospital Course Hospital Course: Medicine Discharge Summary for Hospitalist Service This is a 72 year old female with past medical history of Hypertension, Hypothyroidism, Herniated Discs, Anxiety who presented to the emergency dept on 04/22/18 for worsening LLQ pain that started 3 days prior. Patient stated that this has never happened to her before. Was unable to describe the pain. Pain was worse with movement, coughing, passing flatus. Denied any relieving factors. When moving she rated the pain a 5/10 on pain scale. Admitted to constipation. Last bowel movement was the prior night at 9pm. Stool was hard. She denied any fever/chills, headaches, dizziness, cp, palpitations, sob, dysuria, blood in stool, or melena. Pt was admitted for abd pain, found likely to be 2/2 ileitis/constipation. Pt was started on Cipro/Flagyl. Urine and blood cxs demonstrated no growth, therefore antibiotics were discontinued. Ct was unremarkable for acute findings. Pt also had hyponatremia on admission labs, which resolved with subsequent repeat labs. Of note, pt had IV infiltrate overnight into 04/23/18 that was given warm compresses as tx to affected swollen R arm, pt denied any pain or changes in sensation or color. Venous and arterial dopplers on 04/23/18 demonstrated no clots present in R upper extremity. Gi was consulted for abd pain, who recommended conservative tx and thought the symptoms were 2/2 to her constipation. Pt was discharged to home in stable consition on 04/23/18, instructed to resume home meds, and follow-up with her PCP (Dr. Chew) within 1 week of hospital discharge. Discharge Exam - Head Exam Head Exam: ATRAUMATIC, NORMOCEPHALIC - Eye Exam Eye Exam: EOMI, Normal appearance, PERRL - ENT Exam ENT Exam: Mucous Membranes Moist - Respiratory Exam Respiratory Exam: Clear to PA & Lateral, NORMAL BREATHING PATTERN, UNREMARKABLE - Cardiovascular Exam Cardiovascular Exam: REGULAR RHYTHM, +S1, +S2. absent: Gallop, Rubs, Systolic Murmur - Extremities Exam Additional comments: R arm swelling not tender with palpation, improving with application of warm compress - Neurological Exam Neurological exam: Alert, CN II-XII Intact, Oriented x3, Reflexes Normal - Psychiatric Exam Psychiatric exam: Normal Affect, Normal Mood - Skin Skin Exam: Dry, Intact, Warm Discharge Plan - Follow Up Plan Condition: STABLE Disposition: HOME/ ROUTINE Additional Instructions: Please follow-up with your primary care physician (Dr. Chew) within 1 week of discharge. Please resume home medications as prescribed. Please apply warm compresses 2-3 times a day as needed until swelling in right arm resolves. Should symptoms recur or worsen, please call your primary care physician or report to your nearest emergency department. Referrals: Renard Chew MD [Primary Care Provider] - <Cathryn Medrano V - Last Filed: 04/24/18 18:52> Provider - Provider Date of Admission: 04/22/18 04:51 Attending physician: Sean Giang MD Primary care physician: Renard Chew MD Diagnosis - Discharge Diagnosis (1) Constipation Status: Acute (2) Abdominal pain, left lower quadrant Status: Acute (3) Hypothyroidism Status: Chronic (4) Anxiety Status: Chronic (5) Peripheral neuropathy Status: Chronic (6) Hypertension Status: Chronic (7) IV infiltration Status: Acute (8) Prophylactic measure Status: Acute Hospital Course - Lab Results Lab Results: Micro Results 04/22/18 06:20 Blood Blood Culture - Preliminary NO GROWTH AFTER 48 HOURS 04/22/18 06:20 Blood Blood Culture - Preliminary NO GROWTH AFTER 48 HOURS 04/22/18 04:05 Urine Urine Culture - Final No Growth (<1,000 CFU/ML) Most Recent Lab Values WBC 3.7 K/uL (4.8-10.8) L 04/23/18 06:57 RBC 4.20 Mil/uL (3.80-5.20) 04/23/18 06:57 Hgb 12.4 g/dL (11.0-16.0) 04/23/18 06:57 Hct 35.6 % (34.0-47.0) 04/23/18 06:57 MCV 84.9 fL (81.0-99.0) 04/23/18 06:57 MCH 29.5 pg (27.0-31.0) 04/23/18 06:57 MCHC 34.8 g/dL (33.0-37.0) 04/23/18 06:57 RDW 13.6 % (11.5-14.5) 04/23/18 06:57 Plt Count 195 K/uL (130-400) 04/23/18 06:57 MPV 9.1 fL (7.2-11.7) 04/23/18 06:57 Neut % (Auto) 41.5 % (50.0-75.0) L 04/23/18 06:57 Lymph % (Auto) 41.5 % (20.0-40.0) H 04/23/18 06:57 [place] % (Auto) 12.4 % (0.0-10.0) H 04/23/18 06:57 Eos % (Auto) 3.6 % (0.0-4.0) 04/23/18 06:57 Baso % (Auto) 1.0 % (0.0-2.0) 04/23/18 06:57 Neut # (Auto) 1.5 K/uL (1.8-7.0) L 04/23/18 06:57 Lymph # (Auto) 1.5 K/uL (1.0-4.3) 04/23/18 06:57 [place] # (Auto) 0.5 K/uL (0.0-0.8) 04/23/18 06:57 Eos # (Auto) 0.1 K/uL (0.0-0.7) 04/23/18 06:57 Baso # (Auto) 0.0 K/uL (0.0-0.2) 04/23/18 06:57 Sodium 136 mmol/L (132-148) 04/23/18 06:57 Potassium 3.7 mmol/L (3.6-5.2) 04/23/18 06:57 Chloride 102 mmol/L (98-107) 04/23/18 06:57 Carbon Dioxide 27 mmol/L (22-30) 04/23/18 06:57 Anion Gap 10 (10-20) 04/23/18 06:57 BUN 5 mg/dL (7-17) L 04/23/18 06:57 Creatinine 0.6 mg/dL (0.7-1.2) L 04/23/18 06:57 Est GFR ( Amer) > 60 04/23/18 06:57 Est GFR (Non-Af Amer) > 60 04/23/18 06:57 Random Glucose 91 mg/dL (65-105) 04/23/18 06:57 Serum Osmolality 281 mosm/kg (272-300) 04/22/18 07:21 Calcium 8.5 mg/dl (8.6-10.4) L 04/23/18 06:57 Phosphorus 3.1 mg/dL (2.5-4.5) 04/23/18 06:57 Magnesium 2.0 mg/dL (1.6-2.3) 04/23/18 06:57 Total Bilirubin 0.5 mg/dL (0.2-1.3) 04/23/18 06:57 AST 21 U/L (14-36) 04/23/18 06:57 ALT 29 U/L (9-52) 04/23/18 06:57 Alkaline Phosphatase 64 U/L (38-126) 04/23/18 06:57 Total Protein 6.0 g/dL (6.3-8.3) L 04/23/18 06:57 Albumin 3.3 g/dL (3.5-5.0) L 04/23/18 06:57 Globulin 2.7 gm/dL (2.2-3.9) 04/23/18 06:57 Albumin/Globulin Ratio 1.2 (1.0-2.1) 04/23/18 06:57 Lipase 88 U/L (23-300) 04/22/18 02:09 Procalcitonin < 0.05 NG/ML (0.19-0.49) L 04/22/18 07:21 Urine Color Colorless (YELLOW) 04/22/18 01:47 Urine Clarity Clear (Clear) 04/22/18 01:47 Urine pH 6.0 (5.0-8.0) 04/22/18 01:47 Ur Specific [place] 1.002 (1.003-1.030) L 04/22/18 01:47 Urine Protein Negative mg/dL (NEGATIVE) 04/22/18 01:47 Urine Glucose (UA) Normal mg/dL (Normal) 04/22/18 01:47 Urine Ketones Trace mg/dL (NEGATIVE) 04/22/18 01:47 Urine Blood Trace (NEGATIVE) H 04/22/18 01:47 Urine Nitrate Negative (NEGATIVE) 04/22/18 01:47 Urine Bilirubin Negative (NEGATIVE) 04/22/18 01:47 Urine Urobilinogen Normal mg/dL (0.2-1.0) 04/22/18 01:47 Ur Leukocyte Esterase Neg Maureen/uL (Negative) 04/22/18 01:47 Urine WBC (Auto) < 1 /hpf (0-5) 04/22/18 01:47 Ur Squamous Epith Cells 1 /hpf (0-5) 04/22/18 01:47 Urine Osmolality 139 mosm/kg (300-1000) L 04/22/18 06:20 Ur Random Creatinine 13.5 mg/dL 04/22/18 06:20 Ur Random Sodium 21 mmol/L 04/22/18 06:20 Attending/Attestation - Attestation I have personally seen and examined this patient.: Yes I have fully participated in the care of the patient.: Yes I have reviewed all pertinent clinical information, including history, physical exam and plan: Yes Notes (Text): This is a late computer entry for 04/23/2018 Patient seen, examined, case discussed with medical apparatus model maker. Patient seen in the morning had a bowel movement discussed with nursing staff. Patient has little to no pain or abdominal exam this morning. Patient main complaint noting for swelling over the upper extremity. Patient is completely arterial and venous duplex prelim read show no acute findings. Patient given a diuretic and steroid to relieve swelling as well as warm compresses to relieve swelling. Patient is medically stable for discharge today. No new medications upon discharge. Patient follow-up with Dr. Chew as outpatient. This is a summary of patient's hospitalization please refer to EMR for fluid control detail record. Discharge diagnoses (1) Constipation resolved Assessment & Plan: patient had bowel movement overnight. Patient reporting minimal pain on exam miralax daily colace 100mg PO BID Status: Acute (2) Abdominal pain, left lower quadrant resolved Assessment & Plan: secondary to fecal stasis had bowel movement overnight CT scan: no acute findings related to/accounting for the clinical presentation Status: Acute (3) Hypothyroidism chronic Assessment & Plan: Synthroid 25mcg PO qAM Status: Chronic (4) Anxiety chronic Assessment & Plan: Xanax 0.25mg PO PRN daily Status: Chronic (5) Peripheral neuropathy chronic Status: Chronic (6) Hypertension chronic Assessment & Plan: Cozaar 75mg PO daily (50mg PO qam; 25mg PO pm) Status: Chronic (7) IV line infiltration acute Assessment & Plan: patient has radial pulses; edematous over the right upper extremity Patient is ordered for venous and arterial duplex to rule out other pathology preliminary noting for no acute pathology. Patient started on warm compresses and given dose of lasix and prednisone to relieve swelling: Advised for warm compresses to relieve fluid. (7) Prophylactic measure Assessment & Plan: d/c IV fluids patient is tolerating liquid diet Status: Acute
[2018-04-24] MEDS ORDERED: Influenza Vaccine 60 MCG/0.5 ML SYR (3 yr & up) IM ONE (10:00)
[2018-04-25] MEDS ORDERED: Pneumococcal 23-Valent Vaccine IM ONE (10:00)
--- NOTE | 2018-04-25 12:00 | VASCLAB ---
Date of service: 04/23/2018 PROCEDURE: Right Upper Extremity Venous Duplex Exam HISTORY: R upper extremity arm swelling PRIORS: None. TECHNIQUE: Right upper extremity, internal jugular, subclavian, axillary, brachial, ulnar, radial, basilic and upper cephalic veins were evaluated. Flow was assessed with color Doppler, compressibility, assessment of phasic flow and augmentation response. Report prepared by Josie Greco S FINDINGS: RIGHT: 1. Internal Jugular: 1.1. Compressibility - Fully compressible: Thrombus - None : Flow - Phasic: Augmentation -Normal: Reflux - None. 2. Subclavian: 2.1. Compressibility - Fully compressible: Thrombus - None : Flow - Phasic: Augmentation -Normal: Reflux - None. 3. Axillary: 3.1. Compressibility - Fully compressible: Thrombus - None : Flow - Phasic: Augmentation -Normal: Reflux - None. 4. Brachial: 4.1. Compressibility - : Thrombus - : Flow - : Augmentation -: Reflux - . 5. Ulnar: 5.1. Compressibility - Fully compressible: Thrombus - None: Flow - Phasic: Augmentation -Normal: Reflux - None. 6. Radial: 6.1. Compressibility - Fully compressible: Thrombus - None: Flow - Phasic: Augmentation - Normal: Reflux - None. 7. Cephalic: 7.1. Compressibility - Fully compressible: Thrombus - None: Flow - Phasic: Augmentation -Normal: Reflux - None. 8. Basilic: 8.1. Compressibility - Fully compressible: Thrombus - None: Flow - Phasic: Augmentation -Normal: Reflux - None. OTHER FINDINGS: Right: There was a high radial/ulnar bifurcation noted off the axillary vein. There was no brachial vein visualized due to high bifurcation. IMPRESSION: Right: No evidence of vein thrombosis of the right upper extremity with excellent venous flow. Normal valve function noted of the right side. Normal venous flow noted in the left internal jugular and left subclavian veins.
--- NOTE | 2018-04-25 12:01 | VASCLAB ---
Date of service: 04/23/2018 PROCEDURE: HISTORY: R upper extremity arm swelling 2/2 IV infiltrate COMPARISON: None available. TECHNIQUE: Grayscale and duplex Doppler evaluation the subclavian artery, axillary artery, brachial artery, radial artery and ulnar artery. FINDINGS: IMPRESSION: The subclavian artery, axillary artery, radial artery and ulnar artery were patent with normal doppler signal. There was a high radial/ulnar bifurcation off the axillary artery noted, no brachial artery was seen.
== END 2018-04-23 13:11 | disposition home or self-care (01) ==
LOC: SUPCPDRO 01:24 → C.ER 01:24 → C.3T 04:51
PROVIDERS: ADMIT Family Medicine; ATTEND Family Medicine
DX: K59.00 Constipation, unspecified (principal); K52.9 Noninfective gastroenteritis and colitis, unspecified; E87.1 Hypo-osmolality and hyponatremia; M79.89 Other specified soft tissue disorders; T80.89XA Other complications following infusion, transfusion and therapeutic injection, initial encounter; K21.9 Gastro-esophageal reflux disease without esophagitis; I10 Essential (primary) hypertension; G62.9 Polyneuropathy, unspecified; E03.9 Hypothyroidism, unspecified; F41.9 Anxiety disorder, unspecified
CPT/HCPCS: 36415; 74177; 80053; 81001; 82570; 83690; 83735; 83930; 83935; 84100; 84145; 84300; 85025; 87040; 87086; 93930; 93971; 97162; 97530; 99285; C9113; G0378; G8978; G8979; J0744; J1650; J7030; Q9966; Q9967

== ENCOUNTER 2018-07-16 20:46 | Emergency (ER) | payer MEDICARE, OTHER ==
[2018-07-16 20:46] VITALS: BMI 29.8
[2018-07-16] MEDS ORDERED: Sodium Chloride 0.9% 1,000 ML IV ONE (21:37)
[2018-07-16] MEDS ORDERED: Sodium Chloride 0.9% 1,000 ML ONE (21:50)
[2018-07-16] MEDS ORDERED: Iodixanol 320 MG/ML 100 ML BOTTLE IV ONE (21:51)
--- NOTE | 2018-07-16 21:55 | C.PDOC ---
History Of Present Illness 72 y/o female with a PMHx of HTN and hypothyroidism, presents to the ED complaining of abdominal pain for the past few days. Associated with nausea. She denies any vomiting, diarrhea, fever. States she ate some food yesterday, and si nce then has been burping frequently. Time Seen by Provider: 07/16/18 21:19 Chief Complaint (Nursing): Abdominal Pain History Per: Patient History/Exam Limitations: no limitations Onset/Duration Of Symptoms: Days Current Symptoms Are (Timing): Still Present Past Medical History Reviewed: Historical Data, Nursing Documentation, Vital Signs Vital Signs: Last Vital Signs Temp 98.1 F 07/16/18 21:09 Pulse 65 07/16/18 21:09 Resp 18 07/16/18 21:09 BP Pulse Ox 100 07/16/18 21:09 - Medical History PMH: Anxiety, HTN, Hyperthyroidism, Hypothyroidism Surgical History: Appendectomy, Tonsillectomy Other Surgeries: thyroidectomy, hysterectomy Family History: States: Unknown Family Hx - Social History Hx Tobacco Use: No Hx Alcohol Use: No Hx Substance Use: No - Immunization History Hx Tetanus Toxoid Vaccination: No Hx Influenza Vaccination: No Hx Pneumococcal Vaccination: No Review Of Systems Except As Marked, All Systems Reviewed And Found Negative. Constitutional: Negative for: Fever, Chills Cardiovascular: Negative for: Chest Pain Respiratory: Negative for: Shortness of Breath Gastrointestinal: Positive for: Nausea, Abdominal Pain, Other (Frequent belching). Negative for: Vomiting, Diarrhea, Hematochezia, Hematemesis Neurological: Negative for: Weakness, Dizziness Physical Exam - Physical Exam Appears: Non-toxic, No Acute Distress Skin: Normal Color, Warm, Dry Head: Atraumatic, Normacephalic Eye(s): bilateral: Normal Inspection, PERRL, EOMI Nose: Normal (Nares clear bilaterally) Oral Mucosa: Moist Throat: Normal (Oropharynx is clear, uvula midline), No Erythema Neck: Normal ROM Chest: Symmetrical Cardiovascular: Rhythm Regular, No Murmur, No JVD Respiratory: Normal Breath Sounds, No Accessory Muscle Use Gastrointestinal/Abdominal: Soft, Tenderness (to the LLQ), No Distention, No Guarding, No Rebound Extremity: Bilateral: Atraumatic, Normal Color And Temperature, Other (No pitting edema) Pulses: Left Dorsalis Pedis: Normal, Right Dorsalis Pedis: Normal Neurological/Psych: Oriented x3, Normal Speech ED Course And Treatment - Laboratory Results Result Diagrams: 07/16/18 21:59 07/16/18 21:59 O2 Sat by Pulse Oximetry: 100 (RA) Pulse Ox Interpretation: Normal Medical Decision Making Medical Decision Making: Impression: Abdominal pain, r/o diverticulitis Plan: -Labs -IV fluids -Pepcid 20 mg IVP -Zofran 4 mg IVP -CT Abdomen/Pelvis with PO&IV contra Sign out to Dr Lovell follow up ct abd pelvis. Disposition - Disposition Referrals: Renard Chew MD [Primary Care Provider] - Disposition Time: 00:13 Condition: GOOD Forms: [facility] (Dutch) - Clinical Impression Clinical Impression: Abdominal pain - Scribe Statement The provider has reviewed the documentation as recorded by the Oh Smith Provider Attestation: All medical record entries made by the Rodolfoibraj were at my direction and personally dictated by me. I have reviewed the chart and agree that the record accurately reflects my personal performance of the history, physical exam, medical decision making, and the department course for this patient. I have also personally directed, reviewed, and agree with the discharge instructions and disposition.
[2018-07-16 22:01] LABS: BASO # 0.1 K/uL (0.0-0.2); BASO % 0.8 % (0.0-2.0); EOS # 0.1 K/uL (0.0-0.7); EOS % 0.9 % (0.0-4.0); HEMOGLOBIN 12.7 g/dL (11.0-16.0); MEAN CELL VOLUME 85.7 fL (81.0-99.0); MEAN CORPUSCULAR HEMOGLOBIN 28.4 pg (27.0-31.0); MEAN CORPUSCULAR HGB CONC 33.1 g/dL (33.0-37.0); MEAN PLATELET VOLUME 9.4 fL (7.2-11.7); MONO # 0.7 K/uL (0.0-0.8); MONO % 9.4 % (0.0-10.0); NEUT # 5.1 K/uL (1.8-7.0); NEUT % 63.9 % (50.0-75.0); RBC 4.47 Mil/uL (3.80-5.20); RED CELL DISTRIBUTION WIDTH 14.2 % (11.5-14.5)
[2018-07-16] MEDS ORDERED: Iohexol 240 (50 ml) ONE (22:02)
[2018-07-16] MEDS ORDERED: Iohexol 240 (50 ml) PO ONE (22:02)
[2018-07-16 22:14] LABS: ALB/GLOB RATIO 1.3 (1.0-2.1); ALBUMIN 4.1 g/dL (3.5-5.0); ALT/SGPT 29 U/L (9-52); AST/SGOT 30 U/L (14-36); BLOOD UREA NITROGEN 15 mg/dL (7-17); CALCIUM 8.6 mg/dl (8.6-10.4); GFR NON-AFRICAN AMERICAN > 60; LIPASE 84 U/L (23-300)
[2018-07-16 22:20] LABS: SQUAMOUS EPITHIAL < 1 /hpf (0-5); URINE BILIRUBIN NEGATIVE (NEGATIVE); URINE BLOOD NEGATIVE (NEGATIVE); URINE CLARITY Clear (Clear); URINE COLOR Yellow (YELLOW); URINE GLUCOSE (UA) NORMAL (Normal); URINE LEUKOCYTE ESTERASE NEG Leu/uL (Negative); URINE PROTEIN NEGATIVE (NEGATIVE); URINE UROBILINOGEN NORMAL mg/dL (0.2-1.0)
[2018-07-16] MEDS ORDERED: Losartan 12.5 MG TAB PO STA ×2 (22:49→22:50)
[2018-07-16] MEDS ORDERED: Labetalol 25mg/5ml Syringe IVP STA (22:49)
[2018-07-16] MEDS ORDERED: Labetalol 5mg/ml (4ml) ONE (22:56)
[2018-07-17 01:35] VITALS: BP 154/78; PULSE 90; RESP 16; TEMP 98.4; O2SAT 97
--- NOTE | 2018-07-17 17:56 | CT ---
Date of service: 07/16/2018 PROCEDURE: CT Abdomen and Pelvis with contrast HISTORY: abd pain COMPARISON: 04/22/2018 TECHNIQUE: Contrast dose: 100 mL Visipaque 320 Radiation dose: Total exam DLP = 831.17 mGy-cm. This CT exam was performed using one or more of the following dose reduction techniques: Automated exposure control, adjustment of the mA and/or kV according to patient size, and/or use of iterative reconstruction technique. FINDINGS: LOWER THORAX: Unremarkable. LIVER: Unremarkable. No gross lesion or ductal dilatation. GALLBLADDER AND BILE DUCTS: Unremarkable. PANCREAS: Unremarkable. No gross lesion or ductal dilatation. SPLEEN: Unremarkable. ADRENALS: 8 mm right adrenal myelo lipoma, unchanged. KIDNEYS AND URETERS: Unremarkable. No hydronephrosis. No solid mass. VASCULATURE: Unremarkable. No aortic aneurysm. No aortic atherosclerotic calcification or mural plaque present. BOWEL: There is acute sigmoid diverticulitis at the junction of the descending and sigmoid colon. Pericolonic stranding is noted. Grossly unchanged in extent compared to the prior examination. No abscess or free air. The preliminary findings for this examination were reported by [facility] at 12:33 a.m. on 07/17/2018. There is concurrence of this report with the preliminary findings. APPENDIX: Not positively identified. No secondary findings to suggest acute appendicitis. PERITONEUM: Unremarkable. No free fluid. No free air. LYMPH NODES: Unremarkable. No enlarged lymph nodes. BLADDER: Unremarkable. REPRODUCTIVE: Hysterectomy BONES: No acute fracture. OTHER FINDINGS: None. IMPRESSION: Acute diverticulitis at the junction of the descending and sigmoid colon. No evidence of abscess or free air. Minor findings as above.
== END 2018-07-17 01:35 | disposition home or self-care (01) ==
LOC: C.ER 20:46 → SUPCPDRO 20:46 → C.ER 07-17 01:35
DX: R10.32 Left lower quadrant pain (principal); I10 Essential (primary) hypertension; E03.9 Hypothyroidism, unspecified
CPT/HCPCS: 74177; 80053; 81001; 83690; 85025; 96374; 96375; 99285; J1885; J7030; Q9966; Q9967

== ENCOUNTER 2018-07-18 01:41 | Emergency (ER) | payer MEDICARE, OTHER ==
[2018-07-18 01:41] VITALS: BMI 29.8
[2018-07-18 01:48] VITALS: BP 192/86; PULSE 77; RESP 18; TEMP 98.2; O2SAT 99
--- NOTE | 2018-07-18 02:59 | C.PDOC ---
History Of Present Illness 72 y/o F c PMHx waving hypertension/hypotension who has had recently decreased HTN medication p/w hypertension tonight. Patient states she felt flushed in face, prompting her to check BP and found to be 200/100. Reports mild headache. Denies chest pain, dyspnea, abdominal pain, vomiting, urine changes. Time Seen by Provider: 07/18/18 02:35 Chief Complaint (Nursing): High Blood Pressure Past Medical History Vital Signs: Last Vital Signs Temp 98.2 F 07/18/18 01:48 Pulse 77 07/18/18 01:48 Resp 18 07/18/18 01:48 BP 192/86 H 07/18/18 01:48 Pulse Ox 99 07/18/18 01:48 - Medical History PMH: Anxiety, HTN, Hyperthyroidism, Hypothyroidism Surgical History: Appendectomy, Tonsillectomy Family History: States: Unknown Family Hx - Social History Hx Tobacco Use: No Hx Alcohol Use: No Hx Substance Use: No - Immunization History Hx Tetanus Toxoid Vaccination: No Hx Influenza Vaccination: No Hx Pneumococcal Vaccination: No Review Of Systems Except As Marked, All Systems Reviewed And Found Negative. Constitutional: Negative for: Fever Cardiovascular: Negative for: Chest Pain Physical Exam - Physical Exam Additional Physical Exam Comments: Gen: NAD Head: NC/AT Eyes: PERRL ENT: MMM Neck: Supple Chest: No tenderness CV: Regular rate Lungs: CTA b/l Abd: Soft, NT Back: No CVA tenderness Extremities: No edema Skin: No rash Neuro: Alert, no focal deficit ED Course And Treatment O2 Sat by Pulse Oximetry: 99 Medical Decision Making Medical Decision Making: Blood pressure improving without internvention. Now 175/75. Will discharge, instructed to return to ED for worsening headache, chest pain, dyspnea, vomiting, abdominal pain, or urinary changes. Disposition - Disposition Referrals: Renard Chew MD [Staff Provider] - Disposition: HOME/ ROUTINE Disposition Time: 02:59 Condition: STABLE Instructions: High Blood Pressure in Adults, High Blood Pressure Emergencies - Clinical Impression Clinical Impression: Hypertensive urgency
== END 2018-07-18 04:40 | disposition home or self-care (01) ==
LOC: C.ER 01:41
DX: I16.0 Hypertensive urgency (principal)